=== PATIENT | female | born 1975 | race Two or more races ===

== ENCOUNTER 2020-05-22 13:22 | Emergency (ER) | payer OTHER, SELFPAY ==
--- NOTE | 2020-05-22 14:21 | PC.NURSE ---
AWAITING GAME ADVISOR FOR ASSISTANCE WITH TRIAGE
[2020-05-22 14:29] VITALS: BP 113/68; PULSE 89; RESP 16; TEMP 37; O2SAT 100; BMI 26.5
--- NOTE | 2020-05-22 15:08 | PC.NURSE ---
JACKSON GOLE AND DR DAMICO IN TO ASSESS,
--- NOTE | 2020-05-22 15:42 | ED_ITS ---
HPI - General Adult General Chief complaint: General Medical Stated complaint: rash Time Seen by Provider: 05/22/20 15:42 Source: patient Mode of arrival: ambulatory Limitations: no limitations History of Present Illness HPI narrative: 44-year-old female with history of asthma primarily Uzbek- speaking no other significant past medical history she is up-to-date on vaccinations has not had any recent travel or sick contacts she presents today with complaint of rash that started on her face and slowly has progressed to her torso and lower extremity. Has been present for the past 5 days or so. There is no associated fever or pain or discomfort. There is some itchiness. The rash is described as small fluid-filled vesicles. She otherwise denies any nausea vomiting diarrhea recent medication use. Onset (ago): day(s) Location: head, face, neck, chest, back, upper extremity and lower extremity Radiation: non-radiation Severity: mild Exacerbating factors: none Treatments prior to arrival: none Related Data Previous Rx's Medication Instructions Recorded valacyclovir [Valtrex] 1,000 mg PO TID #21 tab 05/22/20 Allergies Allergy/AdvReac Type Severity Reaction Status Date / Time No Known Allergies Allergy Unverified 04/11/20 19:39 [No Known Allergies*] Review of Systems Review of Systems: Constitutional: No Weight loss, No Fever, No Chills, No Night Sweats, No Fatigue, No Malaise ENT/Mouth: No Hearing loss, No Ear Pain, No Nasal Congestion, No Sinus Pain, No Hoarseness, No sore throat, No Rhinorrhea, No Swallowing Difficulty Eyes: No Eye Pain, No Swelling, No Redness, No Foreign Body, No Discharge, No Vision Changes Cardiovascular: No Chest Pain, No SOB, No Dyspnea on Exertion, No Orthopnea, No Edema, No Palpitations Respiratory: No Cough, No Sputum, No Wheezing, No Smoke Exposure, No Dyspnea Gastrointestinal: No Nausea, No Vomiting, No Diarrhea, No Constipation, No abdominal Pain, No Hematochezia, No Melena Genitourinary: no irregular bleeding, No Dysuria, No Urinary Frequency, No Hematuria, No Urinary Incontinence, No Urgency, No Flank Pain, No Urinary Flow Changes, No Hesitancy Musculoskeletal: No joint pain, No Myalgias, No Joint Swelling Skin: No Skin Lesions, No rash Neuro: No Weakness, No Numbness, No Paresthesias, No Loss of Consciousness, No Dizziness, No Headache Psych: No Social Issues Heme/Lymph: No Bruising, No Bleeding,No Lymphadenopathy Endocrine: No Polyuria, No Polydipsia, No Temperature Intolerance Yes all other systems are reviewed and are negative [facility] Past Medical History Attestation statement: The following information was validated with the patient. Medical History (Updated 05/23/20 @ 00:00 by Background Daemon) No known health problems Social History Social History Smoking Status: Never smoker Use of substances other than those prescribed or required for medical reasons: No Advance Directives: No Advance Directives Information Provided: Yes Physical Exam Vital Signs: Vital Signs: Vital Signs Temp Pulse Resp BP Pulse Ox 05/22/20 14:29 98.6 F 89 16 113/68 100 Body Mass Index 26.5 Dr. Moser present as my prospecting observer. Const: General: cooperative and healthy appearing; No acute distress or intoxicated appearing Nutritional Appearance: average body habitus Orientation/consciousness: patient oriented x3 HENMT: Head: Yes normal to inspection Ears: hearing grossly normal bilaterally Eyes: General: appearance normal, both eyes and all related structures Visual Meier: normal visual meier by confrontation Neck: Neck: Yes normal visual inspection, No positive Brudzinski's sign, No positive Kernig's sign and No tender Thyroid: Thyroid normal Chest: Chest palpation & inspection: normal inspection of the chest Resp: Effort & Inspection: normal respiratory effort Cardio: Jugular venous distension: no JVD GI: Inspection: Yes normal to inspection Percussion: Yes normal to percussion Auscultation: normal bowel sounds : General: Yes no CVA tenderness Back/Spine/Pelvis: Back: no CVA tenderness Neuro: General: patient oriented x3 Extrem: General: Yes normal to inspection Course Course Course Narrative: Chemistry still pending patient requesting to be DC will follow up on this if any abnormalities. Medical Decision Making MDM Narrative Medical decision making narrative: AP of 44-year-old female all the vaccinations with rash for the past 5 days or so that is vesicular with clear fluid filled started on head and extended down as noted above. Differential diagnosis include but not limited to VZV, [id number] disease, viral, dermatitis. Case discussed with ID Dr. Lozada who reviewed the pictures, recommendation for serum Varicella A/B, HIV and treat with Valtrex 1 g t.i.d. for 7 days. Outpatient follow-up with clear precaution return follow-up instructions. Findings reviewed with patient via emergency room physician. She is agreeable. Hemodynamically stable, will nontoxic-appearing stable for discharge. Lab Data Result diagrams: 05/22/20 16:59 05/22/20 16:59 Labs: Lab Results 05/22/20 05/22/20 05/22/20 Range/Units 16:59 16:59 16:59 WBC 3.3 L (4.8-10.8) X10*3/uL RBC 4.81 (4.20-5.50) X10*6/uL Hgb 11.7 L (12.0-16.0) g/dl Hct 37.3 (37-47) % MCV 77.5 L (80-98) fL MCH 24.3 L (27.0-33.0) pg MCHC 31.4 (31.0-35.0) g/dl RDW 15.2 (11.0-16.0) % Plt Count 158 L (160-400) X10*3/uL MPV 10.5 (9.4-12.3) fL Immature Gran % (Auto) 0.3 (0.0-0.4) % Neut % (Auto) 46.1 (45-73) % Lymph % (Auto) 42.5 H (20-40) % [place] % (Auto) 10.2 (2-11) % Eos % (Auto) 0.6 (0-4) % Baso % (Auto) 0.3 (0-2) % Lymph # (Auto) 1.4 (1.2-4.9) X10*3/uL [place] # (Auto) 0.3 (0.1-1.2) X10*3/uL Eos # (Auto) 0.0 (0.0-0.4) X10*3/uL Baso # (Auto) 0.0 (0.0-0.2) X10*3/uL Abs Immat Gran (auto) 0.01 (0.00-0.03) X10*3/uL Absolute Neuts (auto) 1.5 L (2.0-8.3) X10*3/uL Absolute Nucleated RBC 0.000 (0.0-0.012) X10*3/uL Nucleated RBC % (auto) 0.0 (0.0-0.2) /100WBC Smear Tech's Comments VERIFIED Sodium 137 (135-145) mmol/L Potassium 4.1 (3.3-5.1) mmol/l Chloride 102 (96-108) mmol/L Carbon Dioxide 26 (22-29) mmol/L Anion Gap 13 (12-20) BUN 8 L (9-16) mg/dL Creatinine 0.76 (0.5-1.4) mg/dL Estim Creat Clear Calc 84.9 Estimated GFR > 60 Random Glucose 96 (60-115) mg/dL Calcium 8.5 (8.4-10.2) mg/dL Total Bilirubin 0.2 (0.0-1.0) mg/dL AST 27 (5-31) U/L ALT 30 (0-31) U/L Alkaline Phosphatase 67 (39-117) U/L Total Protein 7.4 (6.5-8.0) g/dL Albumin 4.4 (3.5-5.0) g/dL HIV 1&2 Ab/P24 Ag 4thGn Nonreactive (Nonreactive) Discharge Plan Discharge Clinical Impression: Rash and nonspecific skin eruption Patient Disposition: Home, Self-Care Instructions: Acute Rash (ED) Prescriptions: New valacyclovir [Valtrex] 1 gram tablet 1,000 mg PO TID Qty: 21 RF: 0 Referrals: Geraldine Lozada MD [Physician] - 1 week Tony Barkley MD [Primary Care Provider] - 1 week Interventions: ED Discharge Assessment Last Done: 05/22/20 18:11 Discharge Date/Time: 05/22/20 18:11
[2020-05-22 17:11] LABS: Basophils Percent Auto 0.3 % (0-2); Eosinophils Percent Auto 0.6 % (0-4); Hematocrit 37.3 % (37-47); Hemoglobin 11.7 g/dl (12.0-16.0); Imm Gran Abs Auto 0.01 X10*3/uL (0.00-0.03); Imm Gran Pct Auto 0.3 % (0.0-0.4); Lymphocytes Absolute Auto 1.4 X10*3/uL (1.2-4.9); Lymphocytes Percent Auto 42.5 % (20-40); MANUAL DIFF FLAG SCAN; Mean Corpuscular HGB Conc 31.4 g/dl (31.0-35.0); Mean Corpuscular Hemoglobin 24.3 pg (27.0-33.0); Mean Corpuscular Volume 77.5 fL (80-98); Mean Platelet Volume 10.5 fL (9.4-12.3); Monocytes Absolute Auto 0.3 X10*3/uL (0.1-1.2); Monocytes Percent Auto 10.2 % (2-11); Neutrophils Absolute Auto 1.5 X10*3/uL (2.0-8.3); Neutrophils Percent Auto 46.1 % (45-73); Platelet Count 158 X10*3/uL (160-400); Red Blood Count 4.81 X10*6/uL (4.20-5.50); Red Cell Distribution Width 15.2 % (11.0-16.0); SCAN SMEAR FLAG 1; White Blood Count 3.3 X10*3/uL (4.8-10.8)
[2020-05-22 17:57] LABS: SLIDE REVIEW VERIFIED
[2020-05-22 18:13] LABS: Alanine Aminotransferase 30 U/L (0-31); Albumin Level 4.4 g/dL (3.5-5.0); Alkaline Phosphatase 67 U/L (39-117); Anion Gap 13 (12-20); Aspartate Amino Transferase 27 U/L (5-31); Bilirubin Total 0.2 mg/dL (0.0-1.0); Blood Urea Nitrogen 8 mg/dL (9-16); Calcium 8.5 mg/dL (8.4-10.2); Carbon Dioxide 26 mmol/L (22-29); Chloride 102 mmol/L (96-108); Creatinine Clr Calc Pharmacy 84.9; Estimated Glomerular Filt Rate > 60; Glucose Random 96 mg/dL (60-115); Potassium 4.1 mmol/l (3.3-5.1); Sodium 137 mmol/L (135-145); Total Protein 7.4 g/dL (6.5-8.0)
[2020-05-22 18:28] LABS: HIV AB/AG Nonreactive (Nonreactive); HIV Num 1 0.14 S/CO (0.00-0.99)
[2020-05-25 14:16] LABS: Varicella IgG Antibody <135.00 index
[2020-06-04 19:41] LABS: HIV Genotype NOT DETECTED
== END 2020-05-22 18:11 | disposition home or self-care (01) ==
PROVIDERS: Nurse Practitioner Primary Care; Emergency Provider Emergency Medicine; PCP Internal Medicine
DX: R21 Rash and other nonspecific skin eruption (principal)
CPT/HCPCS: 36415; 80053; 85025; 86787; 87389; 87900; 87901; 99283

== ENCOUNTER 2021-11-16 12:40 | Emergency (ER) | payer OTHER, SELFPAY ==
--- NOTE | ~2021-11-16 | CT_ITS ---
EXAMINATION: CT ABDOMEN AND PELVIS WITH CONTRAST CLINICAL INFORMATION: Abdominal pain, vomiting and tachycardia. COMPARISON: None TECHNIQUE: Multidetector volumetric images were obtained from the superior aspect of the liver through the pubic symphysis following administration 85 mL of Omnipaque 350 intravenous contrast. Sagittal and coronal reformatted images were obtained on the technologist's workstation. Oral contrast: No This CT examination was performed using dose optimization techniques as appropriate, variously including the following: *Automated exposure control *Adjustment of mA and/or kV according to patient size (this includes techniques or standardized protocols for targeted exams where dose is matched to indication/reason for exam; i.e. extremities or head) *Use of iterative reconstruction technique DLP: 548 mGy-cm FINDINGS: LUNG BASES: Minimal atelectatic changes seen in the right lung base. Heart size is normal. LIVER, GALLBLADDER, AND BILIARY TREE: The liver is normal in size, shape, and attenuation. No focal hepatic lesion or biliary ductal dilatation is present. The gallbladder is unremarkable with no evidence of radiopaque gallstones, gallbladder wall thickening, or obvious pericholecystic inflammatory changes. PANCREAS: Unremarkable. SPLEEN: Unremarkable. ADRENAL GLANDS: Unremarkable. KIDNEYS AND URETERS: The kidneys are normal in size, shape, and attenuation. No hydronephrosis, hydroureter, or calculi seen. No perinephric stranding. BLADDER: Unremarkable. GASTROINTESTINAL TRACT: There is scattered stool and gas seen throughout the colon without any significant distention. The small bowel loops are normal caliber. Appendix is not visualized. No inflammatory process seen in the abdomen. ABDOMINAL WALL: The abdominal wall is unremarkable. LYMPH NODES: Normal. VASCULAR: Unremarkable. PELVIC VISCERA: There is a large exophytic heterogeneous mass arising from the fundus of the stomach suggestive of a large fibroid measuring 14.10 x 10.3 x 8.9 cm OSSEOUS STRUCTURES: Unremarkable. CT/CT abdomen pelvis w con IMPRESSION: Large exophytic fundal fibroid compressing the urinary bladder inferiorly. Otherwise no acute intra-abdominal process seen. Fleischner guidelines were followed.
[2021-11-16 12:58] VITALS: BP 117/76; PULSE 130; RESP 19; TEMP 37.9; O2SAT 99; BMI 26.5
[2021-11-16 13:23] LABS: MANUAL DIFF FLAG NO
[2021-11-16 13:26] LABS: Basophils Percent Auto 0.1 % (0-2); Eosinophils Percent Auto 0.3 % (0-4); Hematocrit 37.8 % (37.0-47.0); Hemoglobin 12.2 g/dl (12.0-16.0); Imm Gran Abs Auto 0.03 X10*3/uL (0.00-0.03); Imm Gran Pct Auto 0.4 % (0.0-0.4); Lymphocytes Absolute Auto 0.5 X10*3/uL (1.2-4.9); Lymphocytes Percent Auto 6.9 % (20-40); Mean Corpuscular HGB Conc 32.3 g/dl (31.0-35.0); Mean Corpuscular Hemoglobin 24.3 pg (27.0-33.0); Mean Corpuscular Volume 75.3 fL (80.0-98.0); Mean Platelet Volume 10.1 fL (9.4-12.3); Monocytes Absolute Auto 0.5 X10*3/uL (0.1-1.2); Monocytes Percent Auto 6.6 % (2-11); Neutrophils Absolute Auto 6.2 x10*3/uL (2.0-8.3); Neutrophils Percent Auto 85.7 % (45-73); Platelet Count 233 X10*3/uL (160-400); Red Blood Count 5.02 X10*6/uL (4.20-5.50); Red Cell Distribution Width 15.4 % (11.0-16.0); White Blood Count 7.3 X10*3/uL (4.8-10.8)
[2021-11-16 13:28] LABS: Appearance Urine HAZY; Color Urine YELLOW; Glucose Urine UA NEG (NEG); Leukocyte Esterase Urine NEG (NEG); Nitrite Urine NEG (NEG); Specific Gravity - Urine 1.025 (1.005-1.025); UACC Culture Trigger NO; Urine Blood TRACE (NEG); Urine Ketones NEG (NEG); Urine Protein 1+ MG/DL (NEG-TRACE)
[2021-11-16 13:29] LABS: UPreg QC Valid YES; Urine Pregnancy NEGATIVE (NEGATIVE)
[2021-11-16 13:38] LABS: Mucus Urine 2+ /LPF; Squamous Epithelial Cell Urine 2+ /LPF
[2021-11-16 13:39] LABS: Bacteria Urine 1+ /LPF; RBC Urine 0-2 /HPF (0); WBC Urine 0 /HPF (0-4)
[2021-11-16 13:40] LABS: Anion Gap 14 (12-20); Blood Urea Nitrogen 13 mg/dL (9-16); Calcium 8.8 mg/dL (8.4-10.2); Carbon Dioxide 26 mmol/L (22-29); Chloride 101 mmol/L (96-108); Creatinine Clr Calc Pharmacy 83.1; Estimated Glomerular Filt Rate > 60; Glucose Random 112 mg/dL (60-115); Potassium 3.7 mmol/L (3.3-5.1); Sodium 137 mmol/L (135-145)
[2021-11-16 13:59] LABS: Influenza A Negative (Negative); Influenza B2 Negative (Negative)
[2021-11-16 14:17] LABS: COVID-19 Test Negative (Negative); IDNOW Serial# 55D5AD1C
[2021-11-16 15:54] LABS: Alanine Aminotransferase 23 U/L (0-31); Albumin Level 4.3 g/dL (3.5-5.0); Alkaline Phosphatase 64 U/L (39-117); Aspartate Amino Transferase 21 U/L (5-31); Bilirubin Direct < 0.2 mg/dL (0.0-0.5); Bilirubin Total 0.3 mg/dL (0.0-1.0); Lipase 16 U/L (8-78); Total Protein 7.5 g/dL (6.5-8.0)
--- NOTE | 2021-11-16 16:25 | ED_ITS ---
HPI - General Adult General Chief complaint: General Medical Stated complaint: Vomiting/Fever Time Seen by Provider: 11/16/21 15:37 Source: patient and family Mode of arrival: ambulatory Limitations: language barrier ( Nicaraguan-speaking, declined medical case worker, patient's and interpreted) History of Present Illness HPI narrative: patient presents to the emergency department for evaluation of nausea with persistent vomiting, reportedly 10 times daily for the past 2 days. Vomiting occurs every time after she eats. Yesterday she was experiencing multiple episodes of diarrhea, that were brown in color without blood. Has upper abdominal discomfort. She does report that the evening prior to her symptoms she went out to eat at a restaurant where she had chicken, yuca and potatoes. her had a different male, and is not experiencing similar symptoms. She denies any known contacts to COVID- 19 or influenza. She has been feeling hot with chills, but has not checked her temperature. Denies headache, nasal congestion, neck pain, cough, shortness of breath, dyspnea on exertion, chest pain, palpitations, pedal edema, constipation, dysuria, urinary frequency, generalized weakness. Related Data Previous Rx's Medication Instructions Recorded valacyclovir 1 gram tablet 1,000 mg PO TID #21 tab 05/22/20 (Valtrex) ondansetron 4 mg disintegrating 4 mg PO Q8H PRN #10 tab 11/16/21 tablet Allergies Allergy/AdvReac Type Severity Reaction Status Date / Time No Known Allergies Allergy Unverified 04/11/20 19:39 [No Known Allergies*] Review of Systems Review of Systems: Constitutional : No Weight loss, Positive tactile fever, positive chills ENT/Mouth :? No sore throat, No Rhinorrhea Eyes: No Swelling, No Redness Cardiovascular : No Chest Pain, No SOB, No Edema Respiratory : No Cough, No Sputum, No Wheezing Gastrointestinal : Positive Nausea, Positive Vomiting, positive Diarrhea, positive abdominal pain, No Hematochezia, No Melena Genitourinary : No Dysuria, No Urinary Frequency, No Hematuria, No Urgency? Musculoskeletal : No joint pain, No Myalgias, No Joint Swelling Skin : No Skin Lesions, No rash Neuro : No Weakness, No Numbness, No Dizziness, No Headache Psych : No Anxiety/Panic, No Depression Heme/Lymph: No Bruising, No Lymphadenopathy Endocrine : No Polyuria, No Polydipsia Yes all other systems are reviewed and are negative [facility] Past Medical History Attestation statement: The following information was validated with the patient. Source: old records reviewed Medical History No known health problems Social History Social History Advance Directives: No Advance Directives Information Provided: No Patient : No Physical Exam ED Vital Signs: Vital Signs - 24 hr 11/16/21 12:58 11/16/21 16:30 11/16/21 18:34 Temperature 100.3 F 100.0 F 101.1 F H Pulse Rate 130 H 113 H 112 H Respiratory Rate 19 16 16 Blood Pressure 117/76 114/66 124/75 Pulse Oximetry 99 96 98 BMI result Body Mass Index 26.5 Vital signs have been reviewed as normal and appeared to be correct. Blood pressure normal.? initially tachycardic during triage at 160, during exam noted to be 116 at 1615.? Respiration rate normal. low-grade fever initially, during exam 99.0 at 1615.? Oxygen saturation normal. Appearance: Alert.?Oriented to person, place and time. No acute distress.?Normal affect. Eyes: Pupils equal, round and reactive to light.? ENT: Pharynx normal.?? Neck: Normal inspection.? Neck supple.?? CVS: Heart sounds normal. Normal heart rate and rhythm.? Pulses normal.?? Respiratory: No respiratory distress.? Lung sounds clear to auscultation bilaterally?? Abdomen: Soft mild upper abdominal tenderness, negative Gregorio sign. Nor moactive bowel sounds. No pulsatile mass.?? Skin: Skin warm and dry.? Normal skin color.? Extremities: No lower extremity edema.? Neuro: Moves all extremities spontaneously. Sensation intact bilaterally. CN II- XII intact. No focal neuro deficits. Ambulates with normal steady gait. Course Course Course Narrative: Patient is a 46-year-old female no significant past medical history, Presenting for evaluation of vomiting, diarrhea, fevers, and abdominal discomfort. Symptoms seem to have started about 6-8 hours after eating at a re staurant. cortical labs from triage revealed COVID- 19 and influenza testing to be negative, urine test is negative. Urinalysis without acute concern for urinary tract infection. CBC reveals no leukocytosis, has elevated neutrophil count. CMP is normal, and lipase is normal. Continues to be tachycardic, poor p.o. tolerance, will order 1 L normal saline IV fluid, Zofran 4 mg IV, will obtain CT of the abdomen to exclude intra-abdominal pathology. Reevaluation(s) Reevaluation #1: CT of abdomen reveals a large exophytic fundal fibroid 14.10 x 10.3 x 8.9 cm compressing the urinary bladder inferiorly, otherwise no acute intra-abdominal pathology. do not suspect this to be the cause of her vomiting or fever, however may be cause her abdominal discomfort. Not consistent with GI perforation, GI bleed, AAA, aortic dissection, DKA. Not consistent with strangulated hernia, bowel obstruction, pulmonary embolism, mesenteric ischemia, myocardial infarction, ovarian torsion. Symptoms most cinsistent with gastr oenteritis, Advised conservative treatment rest, fluids, brat diet, outpatient follow-up with primary care provider in 1-2 days, advised reasons return back to the emergency department. Discussed need for outpatient follow- up with OBGYN regarding large fundal fibroid, Patient denies being aware of any history of fibroids in the past, she does endorse that she was told she would not be able to become due to low blood levels , but does not recall specifics Time: 18:30 Medical Decision Making Medical Records Medical records reviewed: Yes I reviewed the patient's medical records. Lab Data Lab results reviewed: Yes I reviewed the patient's lab results. Result diagrams: 11/16/21 13:13 11/16/21 13:13 Labs: Lab Results 11/16/21 11/16/21 11/16/21 Range/Units 13:13 13:13 13:13 WBC 7.3 (4.8-10.8) X10*3/uL RBC 5.02 (4.20-5.50) X10*6/uL Hgb 12.2 (12.0-16.0) g/dl Hct 37.8 (37.0-47.0) % MCV 75.3 L (80.0-98.0) fL MCH 24.3 L (27.0-33.0) pg MCHC 32.3 (31.0-35.0) g/dl RDW 15.4 (11.0-16.0) % Plt Count 233 (160-400) X10*3/uL MPV 10.1 (9.4-12.3) fL Immature Gran % (Auto) 0.4 (0.0-0.4) % Neut % (Auto) 85.7 H (45-73) % Lymph % (Auto) 6.9 L (20-40) % Falls % (Auto) 6.6 (2-11) % Eos % (Auto) 0.3 (0-4) % Baso % (Auto) 0.1 (0-2) % Lymph # (Auto) 0.5 L (1.2-4.9) X10*3/uL Falls # (Auto) 0.5 (0.1-1.2) X10*3/uL Eos # (Auto) 0.0 (0.0-0.4) X10*3/uL Baso # (Auto) 0.0 (0.0-0.2) X10*3/uL Abs Immat Gran (auto) 0.03 (0.00-0.03) X10*3/uL Absolute Neuts (auto) 6.2 (2.0-8.3) x10*3/uL Absolute Nucleated RBC 0.000 (0.0-0.012) X10*3/uL Nucleated RBC % (auto) 0.0 (0.0-0.2) /100WBC Sodium 137 (135-145) mmol/L Potassium 3.7 (3.3-5.1) mmol/L Chloride 101 (96-108) mmol/L Carbon Dioxide 26 (22-29) mmol/L Anion Gap 14 (12-20) BUN 13 (9-16) mg/dL Creatinine 0.76 (0.5-1.4) mg/dL Estim Creat Clear Calc 83.1 Estimated GFR > 60 Random Glucose 112 (60-115) mg/dL Calcium 8.8 (8.4-10.2) mg/dL Total Bilirubin 0.3 (0.0-1.0) mg/dL Direct Bilirubin < 0.2 (0.0-0.5) mg/dL AST 21 (5-31) U/L ALT 23 (0-31) U/L Alkaline Phosphatase 64 (39-117) U/L Total Protein 7.5 (6.5-8.0) g/dL Albumin 4.3 (3.5-5.0) g/dL Lipase 16 (8-78) U/L Urine Color Urine Appearance Urine pH (5.0-8.0) Ur Specific [place] (1.005-1.025) Urine Protein (NEG-TRACE) MG/DL Urine Glucose (UA) (NEG) MG/DL Urine Ketones (NEG) MG/DL Urine Blood (NEG) Urine Nitrite (NEG) Ur Leukocyte Esterase (NEG) Urine RBC (0) /HPF Urine WBC (0-4) /HPF Ur Squamous Epith Cells /LPF Urine Bacteria /LPF Urine Mucus /LPF Urine Test (NEGATIVE) COVID-19 ([facility]) (Negative) COVID-19 Clin Com Influenza Type A ([facility]) Negative (Negative) Influenza Type B ([facility]) Negative (Negative) Influenza A & B Note See Note 11/16/21 11/16/21 11/16/21 Range/Units 13:13 13:13 13:13 WBC (4.8-10.8) X10*3/uL RBC (4.20-5.50) X10*6/uL Hgb (12.0-16.0) g/dl Hct (37.0-47.0) % MCV (80.0-98.0) fL MCH (27.0-33.0) pg MCHC (31.0-35.0) g/dl RDW (11.0-16.0) % Plt Count (160-400) X10*3/uL MPV (9.4-12.3) fL Immature Gran % (Auto) (0.0-0.4) % Neut % (Auto) (45-73) % Lymph % (Auto) (20-40) % Falls % (Auto) (2-11) % Eos % (Auto) (0-4) % Baso % (Auto) (0-2) % Lymph # (Auto) (1.2-4.9) X10*3/uL Falls # (Auto) (0.1-1.2) X10*3/uL Eos # (Auto) (0.0-0.4) X10*3/uL Baso # (Auto) (0.0-0.2) X10*3/uL Abs Immat Gran (auto) (0.00-0.03) X10*3/uL Absolute Neuts (auto) (2.0-8.3) x10*3/uL Absolute Nucleated RBC (0.0-0.012) X10*3/uL Nucleated RBC % (auto) (0.0-0.2) /100WBC Sodium (135-145) mmol/L Potassium (3.3-5.1) mmol/L Chloride (96-108) mmol/L Carbon Dioxide (22-29) mmol/L Anion Gap (12-20) BUN (9-16) mg/dL Creatinine (0.5-1.4) mg/dL Estim Creat Clear Calc Estimated GFR Random Glucose (60-115) mg/dL Calcium (8.4-10.2) mg/dL Total Bilirubin (0.0-1.0) mg/dL Direct Bilirubin (0.0-0.5) mg/dL AST (5-31) U/L ALT (0-31) U/L Alkaline Phosphatase (39-117) U/L Total Protein (6.5-8.0) g/dL Albumin (3.5-5.0) g/dL Lipase (8-78) U/L Urine Color YELLOW Urine Appearance HAZY Urine pH 6.0 (5.0-8.0) Ur Specific [place] 1.025 (1.005-1.025) Urine Protein 1+ H (NEG-TRACE) MG/DL Urine Glucose (UA) NEG (NEG) MG/DL Urine Ketones NEG (NEG) MG/DL Urine Blood TRACE (NEG) Urine Nitrite NEG (NEG) Ur Leukocyte Esterase NEG (NEG) Urine RBC 0-2 (0) /HPF Urine WBC 0 (0-4) /HPF Ur Squamous Epith Cells 2+ /LPF Urine Bacteria 1+ /LPF Urine Mucus 2+ /LPF Urine Test NEGATIVE (NEGATIVE) COVID-19 ([facility]) Negative (Negative) COVID-19 Clin Com See Note Influenza Type A ([facility]) (Negative) Influenza Type B ([facility]) (Negative) Influenza A & B Note Imaging Data CT scan - abdomen: Radiologist's impression: CT/CT abdomen pelvis w con IMPRESSION: Large exophytic fundal fibroid compressing the urinary bladder inferiorly. Otherwise no acute intra-abdominal process seen.? Discharge Plan Discharge Clinical Impression: Gastroenteritis, Fibroid Patient Disposition: Home, Self-Care Instructions: Acute Nausea and Vomiting (ED) Additional Instructions: your symptoms may be related to food poisoning or possible stomach virus, please take Zofran as needed for nausea, get plenty of rest, and stay well- hydrated. please contact primary care provider to schedule follow-up visit in from to 2 days. Return to the emergency department any new or worsening symptoms or concerns. Please contact OBGYN for further follow-up on fibroid. Prescriptions: New ondansetron 4 mg tablet,disintegrating 4 mg PO Q8H PRN (Reason: nausea and vomiting) Qty: 10 0RF No Action valacyclovir [Valtrex] 1 gram tablet 1,000 mg PO TID Qty: 21 0RF Referrals: Larry Sethi MD [Physician] - 1 week (Large exophytic fundal fibroid) Interventions: ED Discharge Assessment Last Done: 11/16/21 19:03 Discharge Date/Time: 11/16/21 19:04 Print Language: Nicaraguan
[2021-11-16 16:30] VITALS: BP 114/66; PULSE 113; RESP 16; TEMP 37.8; O2SAT 96
[2021-11-16] MEDS: 0.9 % Sodium Chloride 1,000 ML 999 ML IV (16:56)
[2021-11-16] MEDS: iohexoL 350 MG/ML 100 ML INFUS..BTL IV (17:28)
[2021-11-16] MEDS: ondansetron HCL 4 MG/2 ML VIAL IVPUSH (17:41)
[2021-11-16 18:34] VITALS: BP 124/75; PULSE 112; RESP 16; TEMP 38.4; O2SAT 98
[2021-11-16] MEDS: Acetaminophen 325 MG TABLET 975 MG PO (19:00)
== END 2021-11-16 19:04 | disposition home or self-care (01) ==
PROVIDERS: Nurse Practitioner Family; Emergency Provider Internal Medicine; PCP Internal Medicine
DX: K52.9 Noninfective gastroenteritis and colitis, unspecified (principal); D25.9 Leiomyoma of uterus, unspecified; R10.9 Unspecified abdominal pain; R00.0 Tachycardia, unspecified; R50.9 Fever, unspecified; Z20.822 Contact with and (suspected) exposure to COVID-19; Z79.899 Other long term (current) drug therapy
CPT/HCPCS: 74177; 80048; 80076; 81001; 81025; 83690; 85025; 87502; 87635; 96361; 96374; 99284; J2405; Q9967

== ENCOUNTER 2021-12-08 11:13 | Outpatient (REF) | payer OTHER, SELFPAY ==
[2021-12-09 06:41] LABS: CT PCR NOT DETECTED (Not Detect.); NG PCR NOT DETECTED (Not Detect.)
[2021-12-11 18:31] LABS: HPV mRNA E6/E7 rflx Not Detected (Not Detected)
== END 2021-12-08 11:14 | disposition home or self-care (01) ==
LOC: HO.LAB 11:13
PROVIDERS: PCP Internal Medicine; Visit Provider Obstetrics & Gynecology
DX: Z01.419 Encounter for gynecological examination (general) (routine) without abnormal findings (principal); Z11.51 Encounter for screening for human papillomavirus (HPV); D21.9 Benign neoplasm of connective and other soft tissue, unspecified
CPT/HCPCS: 87491; 87591; 87624; 88142; 99202

== ENCOUNTER 2022-03-11 10:34 | Outpatient (REF) | payer OTHER, SELFPAY ==
--- NOTE | ~2022-03-11 | US_ITS ---
EXAMINATION: US PELVIS CLINICAL INFORMATION: Benign neoplasm of connective tissue. Myoma. COMPARISON: CT abdomen and pelvis 11/16/2021. TECHNIQUE: Ultrasound of the pelvis is performed using both transabdominal and transvaginal transducers along with Doppler. Transvaginal imaging is performed due to inadequate visualization transabdominally. FINDINGS: UTERUS: The uterus is anteverted and measures 14.6 cm in length, 7.9 cm in AP and 13.9 cm in transverse dimension. There is a large heterogeneous lesion in the fundus and upper body measuring 10.5 8.2 x 13.9 cm. Previously measured 14.1 x 10.2 x 8.9 cm. No additional lesions seen. The double wall endometrium is not visualized due to large fibroid. The uterus is smooth in contour and has normal myometrial echogenicity. No visible fibroid. ADNEXA: Both ovaries are visualized. There is normal color flow to the adnexa. There is no ovarian torsion. There is no pelvic ascites or fluid collection. Right ovary measures 2.8 x 1.6 x 1.6 and volume 3.8 mL. Left ovary measures 2.8 x 1.5 x 1.8 cm and volume 3.8 mL. There is no free fluid in cul-de-sac. US/US pelvic and transvaginal IMPRESSION: Large uterine fibroid. It is concordant with CT findings from 11/16/2021.
== END 2022-03-11 10:35 | disposition home or self-care (01) ==
LOC: HO.US 10:34
PROVIDERS: Visit Provider Obstetrics & Gynecology
DX: D21.9 Benign neoplasm of connective and other soft tissue, unspecified (principal)
CPT/HCPCS: 76830; 76856

== ENCOUNTER 2022-03-11 13:09 | Outpatient (REF) | payer OTHER, SELFPAY ==
--- NOTE | ~2022-03-11 | XR_ITS ---
EXAMINATION: XR CHEST CLINICAL INFORMATION: Cough. COMPARISON: Chest radiographs dated 05/14/2019. TECHNIQUE: 2 views of the chest were obtained. FINDINGS: No significant abnormality is noted involving the heart, lungs, mediastinum, bony thorax or soft tissues. XR/XR chest 2V IMPRESSION: No acute cardiopulmonary process.
== END 2022-03-11 13:10 | disposition home or self-care (01) ==
LOC: HO.HMGCX 13:09
PROVIDERS: PCP Hospitalist; Visit Provider Family Medicine
DX: R05.9 Cough, unspecified (principal)
CPT/HCPCS: 71046

== ENCOUNTER → 2022-03-25 11:07 | Outpatient (BNVA) | payer OTHER, SELFPAY | PROVIDERS: PCP Hospitalist; Visit Provider Obstetrics & Gynecology | DX: D21.9 Benign neoplasm of connective and other soft tissue, unspecified (principal) | CPT/HCPCS: 99212 ==

== ENCOUNTER 2022-03-26 12:53 | Outpatient (REF) | payer OTHER, SELFPAY ==
--- NOTE | ~2022-03-26 | MM_ITS ---
EXAMINATION: MM SCREENING DIGITAL BREAST TOMOSYNTHESIS, BILATERAL CLINICAL INFORMATION: Screening. Asymptomatic. Age 46. No prior breast imaging. The lifetime risk of breast cancer based on the Tyrer-Cuzick Model is 11%. COMPARISON: None (current study represents initial baseline exam). TECHNIQUE: Digital breast tomosynthesis is performed in both the craniocaudal and mediolateral oblique views along with computer-aided detection (CAD). Synthesized 2D images are generated from the tomosynthesis. FINDINGS: The breasts are heterogeneously dense, which may obscure small masses (ACR BI-RADS breast composition Category c). There are no significant masses, abnormal calcifications, or other abnormalities. The axilla and skin contours are unremarkable. MM/MM tomosynthesis screening BI IMPRESSION: No mammographic evidence of malignancy. ASSESSMENT: BI-RADS 1: Negative RECOMMENDATION: Routine annual mammography screening. This patient's information was entered into a reminder system with a target due date for their next mammogram.
== END 2022-03-26 12:54 | disposition home or self-care (01) ==
LOC: HO.MAMMO 12:53
PROVIDERS: PCP Hospitalist; Visit Provider Obstetrics & Gynecology
DX: Z12.31 Encounter for screening mammogram for malignant neoplasm of breast (principal)
CPT/HCPCS: 77063; 77067

== ENCOUNTER 2023-03-09 10:44 | Outpatient (REF) | payer OTHER, SELFPAY ==
[2023-03-09 17:49] LABS: CT PCR NOT DETECTED (Not Detect.); NG PCR NOT DETECTED (Not Detect.)
[2023-03-10 15:11] LABS: BV Int Neg Control Negative (Negative); BV Int Pos Control Positive (Positive)
== END 2023-03-09 10:45 | disposition home or self-care (01) ==
LOC: HO.LAB 10:44
PROVIDERS: PCP Hospitalist; Visit Provider Advanced Practice Midwife
DX: Z20.2 Contact with and (suspected) exposure to infections with a predominantly sexual mode of transmission (principal)
CPT/HCPCS: 0353U; 87480; 87510; 87660

== ENCOUNTER 2023-03-09 10:44 | Outpatient (AMB) | payer OTHER, SELFPAY ==
--- NOTE | 2023-03-09 10:50 | A.OFFVIS_ITS ---
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 Scribed for JOSE Morales by Zoe Berumen senior medical technologist, on 03/09/2023 at 11:07 am EST. Geoscientist Required: Yes Geoscientist Language: Publications Inspector Name: Carlito Wong Information Interpreted: non-clinical & clinical Mill Machinist: Mill Machinist Present (Stacie) Allergies No Known Allergies [No Known Allergies*] Allergy (Unverified 03/09/23 10:59) Is last menstrual period known: Yes Last menstrual period: 02/11/23 Post menopausal: No Patient : No HPI HPI Comments History of Present Illness Details She is a premenopausal woman presenting for annual exam. She admits to not eating healthy and tries to stay active with exercise. Currently sexually active. Does not use BC due to infertility and was tested in [place]. Denies vaginal itching, odor and irritation. STD screening offered; she accepts. Denies family hx of breast, colon and ovarian cancer. Last pap smear 12/08/21. Last mammogram 03/26/22. [facility] Medical History (Updated 03/09/23 @ 11:34 by Zoe Berumen) History of infertility No known health problems Social History (Updated 03/09/23 @ 11:14 by Camryn Garcia CNM) Household Members: Spouse Housing: Apartment Alcohol intake: never Patient Tobacco Use Status: Never used Tobacco Sexual orientation: Straight/Heterosexual Gender identity: Female Female Reproductive History Menstrual Duration of menses: 6-7 days Date of last menstrual period: 02/11/23 control method: other (infertility) Total pregnancies: 0 Date of last pap smear: 12/08/21 (neg pap and hpv) Date of Mammogram: 03/26/22 (Birad 1) Physical Exam Vital Signs: Last Vital Signs BP 120/60 03/09/23 10:51 BMI result Body Mass Index 27.4 Const General: cooperative, healthy appearing, no acute distress, well developed and alert Orientation/consciousness: patient oriented x3 HEENT Head: Yes normal to inspection Eyes General: appearance normal, both eyes and all related structures Neck Neck: Yes normal visual inspection Thyroid: Thyroid normal Chest Chest palpation & inspection: normal inspection of the chest Breast/axilla inspection: normal inspection of the breasts (no puckering, dimpling, peau de orange, retraction, discharge, masses) Breast/axilla palpation: normal palpation of the breasts Resp Effort & Inspection: normal respiratory effort GI Inspection: Yes normal to inspection Palpation (GI): Soft to palpation (to palpation) Rectal Exam - Female: deferred General: Yes bladder normal to inspection External Female Exam: normal external appearance and normal appearance of the urethra Speculum Exam - Vagina: normal appearance of the vagina, normal palpation and normal vaginal discharge Speculum Exam - Cervix: normal appearance of the cervix and normal palpation Bimanual exam- vagina & uterus: normal palpation, normal palpation and enlarged Bimanual Exam- Adnexa, other: normal adnexae and no masses Skin General skin exam: no rashes or lesions noted Neuro General: patient oriented x3 Cognition (Neuro): normal cognition Extrem General: Yes normal to inspection Psych Attitude: cooperative Thought process: Normal thought process present Results Reviewed Results Reviewed: EXAMINATION:? US PELVIS CLINICAL INFORMATION:? Benign neoplasm of connective tissue. Myoma. COMPARISON: CT abdomen and pelvis 11/16/2021. TECHNIQUE: Ultrasound of the pelvis is performed using both transabdominal and transvaginal transducers along with Doppler. Transvaginal imaging is performed due to inadequate visualization transabdominally. FINDINGS: UTERUS: The uterus is anteverted and measures 14.6 cm in length, 7.9 cm in AP and 13.9 cm in transverse dimension. There is a large heterogeneous lesion in the fundus and upper body measuring 10.5 8.2 x 13.9 cm. Previously measured 14.1 x 10.2 x 8.9 cm. No additional lesions seen. The double wall endometrium is not visualized due to large fibroid.? The uterus is smooth in contour and has normal myometrial echogenicity. ? No visible fibroid. ADNEXA: Both ovaries are visualized. There is normal color flow to the adnexa. There is no ovarian torsion. There is no pelvic ascites or fluid collection. Right ovary measures 2.8 x 1.6 x 1.6 and volume 3.8 mL. Left ovary measures 2.8 x 1.5 x 1.8 cm and volume 3.8 mL. There is no free fluid in cul-de-sac. US/US pelvic and transvaginal IMPRESSION: Large uterine fibroid. It is concordant with CT findings from 11/16/2021. Assessment & Plan Assessment & Plan (1) Encounter for well woman exam: Code(s): Z01.419 - Encounter for gynecological examination (general) (routine) without abnormal findings Plan: Discussed: Current recommendations for pap smears per ASCCP guidelines Breast awareness and periodic self breast exams. Mammogram ordered. Maintaining a healthy lifestyle including a well balanced diet and routine exercise. Encouraged patient to sign up for patient portal. All of her questions and concerns were addressed to the best of my ability. RTO in one year for AG. (2) Myoma: Code(s): D21.9 - Benign neoplasm of connective and other soft tissue, unspecified Plan: Informed myoma has slightly shrunk but can grow while getting menstruation. If abnormal bleeding pattern occurs, contact the office. Leiomyoma: common pelvic neoplasm. Differential diagnosis-may include leiomyosarcoma which is a rare uterine sarcoma 3-7/100,000, difficult to distin guish from fibroids on ultrasound from uterine sarcoma's. Unlikely any single test will have a highly positive predictive value. Hysterectomy is not recommended for sole purpose of excluding malignant neoplasm. Monitor periods, report any unscheduled bleeding, bleeding episodes less than 21 days apart, heavy prolonged menstrual bleeding, pelvic pressure, bloating, or pain. US ordered; follow up in person for results. (3) History of infertility: Code(s): Z87.42 - Personal history of other diseases of the female genital tract (4) Potential exposure to STD: Code(s): Z20.2 - Contact with and (suspected) exposure to infections with a predominantly sexual mode of transmission Plan: BV testing and GC/CT panel done today. Await results and treat accordingly. Orders: Orders MM tomosynthesis screening BI Today Z12.31 - Encounter for screening mammogram for malignant neoplasm of breast US pelvic and transvaginal Today D21.9 - Benign neoplasm of connective and other soft tissue, unspecified Bacterial Vaginosis Panel Today Z20.2 - Contact with and (suspected) exposure to infections with a predominantly sexual mode of transmission CT NG by PCR Today Z20.2 - Contact with and (suspected) exposure to infections with a predominantly sexual mode of transmission Hepatitis B Core Antibody Today Z20.2 - Contact with and (suspected) exposure to infections with a predominantly sexual mode of transmission Hepatitis C Antibody Today Z20.2 - Contact with and (suspected) exposure to infections with a predominantly sexual mode of transmission HIV Ab/Ag Today Z20.2 - Contact with and (suspected) exposure to infections with a predominantly sexual mode of transmission Syphilis Screen Today Z20.2 - Contact with and (suspected) exposure to infections with a predominantly sexual mode of transmission Coding Level of Care Code Est Pt Prev Care 40-64y(19846) Diagnoses Encounter for well woman exam Z01.419 Myoma D21.9 History of infertility Z87.42 Potential exposure to STD Z20.2
[2023-03-09 10:51] VITALS: BP 120/60; BMI 27.4
== END 2023-03-09 11:44 | disposition home or self-care (01) ==
LOC: HO.HWS 10:45
PROVIDERS: PCP Hospitalist; Visit Provider Advanced Practice Midwife
DX: Z01.419 Encounter for gynecological examination (general) (routine) without abnormal findings (principal); D21.9 Benign neoplasm of connective and other soft tissue, unspecified; Z87.42 Personal history of other diseases of the female genital tract; Z20.2 Contact with and (suspected) exposure to infections with a predominantly sexual mode of transmission
CPT/HCPCS: 99396

== ENCOUNTER 2023-03-09 11:26 | Outpatient (REF) | payer OTHER, SELFPAY | END 2023-03-09 11:27 | disposition home or self-care (01) | LOC: HO.LNP 11:26 | PROVIDERS: Visit Provider Advanced Practice Midwife | DX: Z13.89 Encounter for screening for other disorder (principal) ==

== ENCOUNTER 2023-04-01 12:56 | Outpatient (REF) | payer OTHER, SELFPAY ==
--- NOTE | ~2023-04-01 | MM_ITS ---
EXAMINATION: MM SCREENING DIGITAL BREAST TOMOSYNTHESIS, BILATERAL CLINICAL INFORMATION: Screening. Asymptomatic. COMPARISON: Mammography: This study is compared with prior exams dating back to 2021. TECHNIQUE: Digital breast tomosynthesis is performed in both the craniocaudal and mediolateral oblique views along with computer-aided detection (CAD). Synthesized 2D images are generated from the tomosynthesis. FINDINGS: The breasts are heterogeneously dense, which may obscure small masses (ACR BI-RADS breast composition Category c). There are no significant masses, abnormal calcifications, or other abnormalities. MM/MM tomosynthesis screening BI IMPRESSION: No mammographic evidence of malignancy. ASSESSMENT: BI-RADS BI-RADS 1 - Negative RECOMMENDATION: Routine annual mammography screening. 1 year F/U This examination should not preclude the clinical evaluation of a suspicious palpable abnormality. This patient's information was entered into a reminder system with a target due date for their next mammogram.
== END 2023-04-01 12:57 | disposition home or self-care (01) ==
LOC: HO.MAMMO 12:56
PROVIDERS: PCP Hospitalist; Visit Provider Hospitalist
DX: Z12.31 Encounter for screening mammogram for malignant neoplasm of breast (principal)
CPT/HCPCS: 77063; 77067

== ENCOUNTER → 2023-04-01 13:00 | Outpatient (BNV) | payer OTHER, SELFPAY | PROVIDERS: PCP Hospitalist; Visit Provider Radiology Diagnostic Radiology | DX: Z12.31 Encounter for screening mammogram for malignant neoplasm of breast (principal) | CPT/HCPCS: 77063; 77067 ==

== ENCOUNTER 2024-04-06 12:46 | Outpatient (REF) | payer OTHER, SELFPAY ==
--- NOTE | ~2024-04-06 | MM_ITS ---
EXAMINATION: MM SCREENING DIGITAL BREAST TOMOSYNTHESIS, BILATERAL CLINICAL INFORMATION: Screening. Asymptomatic. COMPARISON: Mammography: Comparison is made with available priors TECHNIQUE: Digital breast mammography with tomosynthesis is performed in both the craniocaudal and mediolateral oblique views along with computer-aided detection (CAD). FINDINGS: The breasts are heterogeneously dense, which may obscure small masses (ACR BI-RADS breast composition Category c). There are no significant masses, abnormal calcifications, or other abnormalities. MM/MM tomosynthesis screening BI IMPRESSION: No mammographic evidence of malignancy. ASSESSMENT: BI-RADS BI-RADS 1 - Negative RECOMMENDATION: Routine annual mammography screening. 1 year F/U This examination should not preclude the clinical evaluation of a suspicious palpable abnormality. This patient's information was entered into a reminder system with a target due date for their next mammogram. Electronically signed by: Oriana Alexis DO 04/20/2024 08:06 PM EDDewey
== END 2024-04-06 12:47 | disposition home or self-care (01) ==
LOC: HO.MAMMO 12:46
PROVIDERS: Visit Provider Advanced Practice Midwife
DX: Z12.31 Encounter for screening mammogram for malignant neoplasm of breast (principal)
CPT/HCPCS: 77063; 77067

== ENCOUNTER → 2024-04-06 13:00 | Outpatient (BNV) | payer OTHER, SELFPAY | PROVIDERS: Visit Provider Internal Medicine | DX: Z12.31 Encounter for screening mammogram for malignant neoplasm of breast (principal) | CPT/HCPCS: 77063; 77067 ==

== ENCOUNTER 2024-07-05 10:57 | Outpatient (REF) | payer OTHER, SELFPAY ==
[2024-07-05 12:22] LABS: Syphilis Screen Nonreactive (Nonreactive)
[2024-07-05 12:23] LABS: HBc Num1 0.11 S/CO (0.00-0.79)
[2024-07-05 12:24] LABS: HIV AB/AG Nonreactive (Nonreactive); HIV Num 1 0.06 S/CO (0.00-0.99); Hepatitis B Core Antibody Nonreactive (Nonreactive); ~HepC Num1 0.26 S/CO (0.00-0.79); ~Hepatitis C Antibody Nonreactive (Nonreactive)
== END 2024-07-05 10:58 | disposition home or self-care (01) ==
LOC: HO.LAB 10:57
PROVIDERS: Visit Provider Advanced Practice Midwife
DX: Z20.2 Contact with and (suspected) exposure to infections with a predominantly sexual mode of transmission (principal); Z11.59 Encounter for screening for other viral diseases
CPT/HCPCS: 36415; 86704; 86780; 86803; 87389

== ENCOUNTER 2024-09-14 09:24 | Outpatient (AMB) | payer OTHER, SELFPAY ==
--- NOTE | 2024-09-14 09:48 | MHC.OFFVIS ---
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 Doing well with no mounted police officer concerns. Regular monthly menses. Hx. of infertility. History of fibroids. Currently is sexually active. She denies vaginal itching and irritation. STI screening offered; she declines. She tries to eat healthy, no exercise. Denies family history of breast, ovarian or colon cancer. Last pap smear 2021, negative. Mammogram: 2023. REPLACED BY [facility] Medical History (Updated 09/14/24 @ 10:24 by Camryn Garcia CNM) Enlarged uterus History of infertility No known health problems Social History Household Members: Spouse Housing: Apartment Alcohol intake: never Patient Tobacco Use Status: Never used Tobacco Sexual orientation: Straight/Heterosexual Gender identity: Female Female Reproductive History Menstrual Duration of menses: 6-7 days Date of last menstrual period: 09/07/24 Total pregnancies: 0 Date of last pap smear: 12/08/21 (negative pap smear, negative hpv) History of abnormal pap smear: No Date of Mammogram: 04/06/24 (bi rad 1) Review of Systems Const All systems reviewed & are unremarkable except as noted in HPI and below Reports as per HPI Eyes Reports no additional complaints ENT Reports no additional complaints Card Reports no additional complaints Resp Reports no additional complaints GI Reports as per HPI and Reports no additional complaints Reports as per HPI Musc Reports no additional complaints Skin/Breast Reports as per HPI Neuro Reports no additional complaints Psych Reports no additional complaints Endo Reports no additional complaints Jesus/Lymph Reports no additional complaints Aller/Immun Reports no additional complaints Physical Exam Vital Signs: Last Vital Signs BP 118/72 09/14/24 09:59 BMI result Body Mass Index 26.9 Const General: cooperative, healthy appearing, no acute distress, well developed and alert Orientation/consciousness: patient oriented x3 HEENT Head: Yes normal to inspection Eyes General: appearance normal, both eyes and all related structures Neck Neck: Yes normal visual inspection Thyroid: Thyroid normal Chest Chest palpation & inspection: normal inspection of the chest and other (no puckering, dimpling, peau de orange, retraction, discharge, masses) Breast/axilla inspection: normal inspection of the breasts Breast/axilla palpation: normal palpation of the breasts Resp Effort & Inspection: normal respiratory effort GI Inspection: Yes normal to inspection Palpation (GI): Soft to palpation Rectal Exam - Female: deferred General: Yes bladder normal to palpation External Female Exam: normal external appearance and normal appearance of the urethra Speculum Exam - Vagina: normal appearance of the vagina, normal palpation and normal vaginal discharge Speculum Exam - Cervix: normal appearance of the cervix and normal palpation Bimanual exam- vagina & uterus: normal bimanual exam, normal palpation, bladder normal to palpation, normal palpation, non-tender and enlarged Bimanual Exam- Adnexa, other: no masses Skin General skin exam: no rashes or lesions noted Rashes: no rashes Neuro General: patient oriented x3 Cognition (Neuro): normal cognition Extrem General: Yes normal to inspection Psych Attitude: cooperative Thought process: Normal thought process present Assessment & Plan Assessment & Plan (1) Encounter for well woman exam with routine gynecological exam: Code(s): Z01.419 - Encounter for gynecological examination (general) (routine) without abnormal findings Category: Medical Plan: Discussed: Current recommendations for pap smears per ASCCP guidelines. Breast awareness and periodic breast exams. Mammogram yearly. Maintain a healthy lifestyle including a well balanced diet and routine exercise. Patient verbalizes understanding and agrees to the plan of care. She was given opportunity to ask questions and all questions were answered to the best of my ability. RTO in one year for annual mounted police officer examination. This note is constructed using voice recognition software. While every effort has been made to ensure accuracy, log processor operator errors may have been included. (2) Enlarged uterus: Code(s): N85.2 - Hypertrophy of uterus Category: Medical Plan: Ultrasound plan to check the enlarged uterus, follow up in person to discuss test results, report any pain. UPT today-negative. Monitor menstrual cycles, report any unscheduled bleeding, bleeding episodes <24 days apart or heavy/prolonged menstrual bleeding. Call the office for a follow up for any concerns. Plan The patient expressed understanding and agreement with the plan of care. All of her questions and concerns were addressed to the best of my ability. Total time I personally spent on visit and management today: ?10 minutes. Time spent included review of pertinent office notes in the electronic health record; review of laboratory and imaging results; review of personal family medical history; discussing diagnosis and plan of care with the patient; documenting the encounter in the EMR. This note is constructed using voice recognition software. While every effort has been made to ensure accuracy, log processor operator errors may have been included. Orders: Orders MM tomosynthesis screening BI Today Z12.31 - Encounter for screening mammogram for malignant neoplasm of breast US pelvic and transvaginal Today N85.2 - Hypertrophy of uterus Coding Level of Care Code Est Pt Level 2 (67692) Est Pt Prev Care 40-64y(27545) Diagnoses Encounter for well woman exam with routine gynecological exam Z01.419 Enlarged uterus N85.2
[2024-09-14 09:59] VITALS: BP 118/72; BMI 26.9
== END 2024-09-14 10:38 | disposition home or self-care (01) ==
PROVIDERS: PCP Hospitalist; Visit Provider Advanced Practice Midwife
DX: Z01.411 Encounter for gynecological examination (general) (routine) with abnormal findings (principal); N85.2 Hypertrophy of uterus; Z32.02 Encounter for pregnancy test, result negative
CPT/HCPCS: 99212; 99396; 99459

== ENCOUNTER → 2024-09-14 09:24 | Outpatient (BNVA) | payer OTHER, SELFPAY | PROVIDERS: PCP Hospitalist; Visit Provider Advanced Practice Midwife | DX: Z01.419 Encounter for gynecological examination (general) (routine) without abnormal findings (principal); N85.2 Hypertrophy of uterus | CPT/HCPCS: 81025; 99212; 99396; 99459 ==

== ENCOUNTER 2024-10-03 11:28 | Outpatient (REF) | payer OTHER, SELFPAY ==
--- NOTE | ~2024-10-03 | US_ITS ---
EXAMINATION: US PELVIS TRANSABDOMINAL AND TRANSVAGINAL HISTORY: N85.2 - Hypertrophy of uterus COMPARISON: Comparison is made with the prior examination dated 03/11/2022. TECHNIQUE: Transabdominal and endovaginal real-time 2D tucker-scale ultrasound was performed. FINDINGS: Uterus: The uterus is normal in size, measuring 8.9 x 3.6 x 4.1 cm. Myometrium has a normal echotexture. Again seen is a dominant pedunculated fundal fibroid measuring 12.7 x 8.8 x 15.9 cm (previously 10.5 x 8.2 x 13.9 cm). Multiple additional fibroids are noted including a 1.8 x 1.4 x 1.7 cm anterior fibroid, a 1.6 x 2.0 x 1.8 cm anterior fibroid, a 1.5 x 1.3 x 1.5 cm right-sided fibroid, and a 2.3 x 2.2 x 1.8 cm right-sided fibroid. Endometrium: The endometrial stripe measures 9 mm in thickness. Right ovary: The right ovary is not identified. Left ovary: The left ovary measures 3.6 x 2.5 x 3.0 cm. The left ovary is normal in size and echotexture. Pelvic fluid: none. US/US pelvic and transvaginal IMPRESSION: Fibroid uterus as described. Electronically signed by: Jose Goldstein MD 10/03/2024 03:15 PM EDT
== END 2024-10-03 11:29 | disposition home or self-care (01) ==
LOC: HO.US 11:28
PROVIDERS: Visit Provider Advanced Practice Midwife
DX: N85.2 Hypertrophy of uterus (principal)
CPT/HCPCS: 76830; 76856

== ENCOUNTER → 2024-10-03 11:29 | Outpatient (BNV) | payer OTHER, SELFPAY | PROVIDERS: Visit Provider Radiology Diagnostic Radiology | DX: D25.9 Leiomyoma of uterus, unspecified (principal) | CPT/HCPCS: 76830; 76856 ==

== ENCOUNTER 2024-10-10 11:31 | Outpatient (AMB) | payer OTHER, SELFPAY ==
--- NOTE | 2024-10-10 11:35 | A.OFFVIS_ITS ---
Intake Visit Reasons: US follow up/Ok leslye Chung Cash Sales Audit Clerk Required: Yes Cash Sales Audit Clerk Language: Correspondence Coordinator Services: Cash Sales Audit Clerk Present Cash Sales Audit Clerk Name: Shira GIVENS Information Interpreted: non-clinical & clinical Dentist Private Practice: Dentist Private Practice Present Accompanied by: Spouse Allergies No Known Allergies [No Known Allergies*] Allergy (Unverified 03/09/23 10:59) Is last menstrual period known: Yes HPI Comments Details: Patient is here today for a follow up pelvic ultrasound accompanied by her , Henry. History of multiple and large fibroid. She reports an increase in pressure in pain now with her cycle. Menses are regular lasting 5-6 days, she does not report any heavy bleeding. [facility] Medical History (Updated 10/10/24 @ 12:10 by Camryn Garcia CNM) Enlarged uterus History of infertility No known health problems Social History Household Members: Spouse Housing: Apartment Alcohol intake: never Patient Tobacco Use Status: Never used Tobacco Sexual orientation: Straight/Heterosexual Gender identity: Female Review of Systems Const All systems reviewed & are unremarkable except as noted in HPI and below Endo Reports no additional complaints Physical Exam Const General: cooperative, healthy appearing and no acute distress Psych Appearance: well kempt Attitude: cooperative Thought process: Normal thought process present Results Reviewed Results Reviewed: [address] [address] Ultrasound Report Signed Patient: Geni Bourne MR#: [id number] : 1975 Acct:[id number] Age/Sex: 49 / F ADM Date: 10/03/24 Loc: HO.US Attending Dr: Camryn Garcia CNM Ordering Physician: Camryn Garcia CNM Date of Service: 10/03/24 Procedure(s): US pelvic and transvaginal Accession Number(s): [id number] cc: Camryn Garcia CNM~ EXAMINATION: US PELVIS TRANSABDOMINAL AND TRANSVAGINAL HISTORY: N85.2 - Hypertrophy of uterus COMPARISON: Comparison is made with the prior examination dated 03/11/2022. TECHNIQUE: Transabdominal and endovaginal real-time 2D tucker-scale ultrasound was performed. FINDINGS: Uterus: The uterus is normal in size, measuring 8.9 x 3.6 x 4.1 cm. Myometrium has a normal echotexture. Again seen is a dominant pedunculated fundal fibroid measuring 12.7 x 8.8 x 15.9 cm (previously 10.5 x 8.2 x 13.9 cm). Multiple additional fibroids are noted including a 1.8 x 1.4 x 1.7 cm anterior fibroid, a 1.6 x 2.0 x 1.8 cm anterior fibroid, a 1.5 x 1.3 x 1.5 cm right-sided fibroid, and a 2.3 x 2.2 x 1.8 cm right-sided fibroid. Endometrium: The endometrial stripe measures 9 mm in thickness. Right ovary: The right ovary is not identified. Left ovary: The left ovary measures 3.6 x 2.5 x 3.0 cm. The left ovary is normal in size and echotexture. Pelvic fluid: none. US/US pelvic and transvaginal IMPRESSION: Fibroid uterus as described. Electronically signed by: Jose Goldstein MD 10/03/2024 03:15 PM EDT RP Dictated By: Jose Goldstein MD Signed By: <Electronically signed by Jose Goldstein MD in OV> 10/03/24 1515 DD/ 1134 TD/TT: 10/03/24 1158 Horse Trainer: Assessment & Plan Assessment & Plan (1) Encounter to discuss test results: Code(s): Z71.2 - Person consulting for explanation of examination or test findings (2) Fibroid: Comment: 15.9cm, and other multiple fibroids Code(s): D21.9 - Benign neoplasm of connective and other soft tissue, unspecified Category: Medical Plan: Counseled re: Leiomyoma: common pelvic neoplasm. Differential diagnosis-may include but not limited to- leiomyosarcoma which is a rare uterine sarcoma 3- 7/100,000, difficult to distinguish from fibroids on ultrasound from uterine sarcoma's. Unlikely any single test will have a highly positive predictive value. Hysterectomy is not recommended for sole purpose of excluding malignant neoplasm. Consult for surgical exploration, medical treatment, other treatments, verses expectant management, pros and cons, risks and benefits. Patient prefers to proceed with consult for surgical management versus expectant management. Appointment to be made at [facility] for consult. Report any AUB, increasing pelvic pressure, bloating, or increasing pain. Referral to MD if indicated for level of care if indicated. The patient expressed understanding and agreement with the plan of care. All of her questions and concerns were addressed to the best of my ability. This note is constructed using voice recognition software. While every effort has been made to ensure accuracy, fittings finisher errors may have been included. Plan Discussed: Ultrasound findings large 15.9cm fibroid, multiple smaller fibroids. Orders: Referrals MAINTENANCE GROUNDMAN Referral D21.9 - Benign neoplasm of connective and other soft tissue, unspecified Coding Level of Care Code Est Pt Level 3 (55629) Diagnoses Encounter to discuss test results Z71.2 Fibroid D21.9
== END 2024-10-10 12:10 | disposition home or self-care (01) ==
LOC: HO.HWS 11:31
PROVIDERS: Visit Provider Advanced Practice Midwife
DX: Z71.2 Person consulting for explanation of examination or test findings (principal); D21.9 Benign neoplasm of connective and other soft tissue, unspecified
CPT/HCPCS: 99213

== ENCOUNTER → 2024-10-10 11:31 | Outpatient (BNVA) | payer OTHER, SELFPAY | PROVIDERS: Visit Provider Advanced Practice Midwife | DX: D21.9 Benign neoplasm of connective and other soft tissue, unspecified (principal); Z71.2 Person consulting for explanation of examination or test findings | CPT/HCPCS: 99212 ==

== ENCOUNTER 2025-01-10 13:02 | Emergency (ER) | payer OTHER, SELFPAY ==
[2025-01-10 13:10] VITALS: BP 129/43; PULSE 111; RESP 16; TEMP 36.4; O2SAT 99; BMI 29.4
--- NOTE | 2025-01-10 13:15 | ED.GENADULT ---
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 She states that has been red and itchy for about 2 weeks pain Today she noticed swelling to the area. She has been using calamine lotion and an [id number] poison hernando ointment with minimal improvement She reports that prior to the onset of her symptoms she was in a field ?helping a turtle across the road. Denies any fevers or chills pain Denies any new medications Related Data Previous Rx's ?Medication ?Instructions ?Recorded valacyclovir 1 gram tablet 1,000 mg PO TID #21 tabs 05/22/20 (Valtrex) ondansetron 4 mg disintegrating 4 mg PO Q8H PRN nausea and 11/16/21 tablet vomiting #10 tabs omeprazole 20 mg capsule,delayed 20 mg PO DAILY 30 days #30 caps 03/11/22 release albuterol sulfate 90 mcg/actuation 2 puff PO Q4-6H PRN for wheezing 04/22/22 aerosol inhaler (ProAir HFA) #8.5 ea prednisone 10 mg tablets in a dose 10 mg PO DIRECTED #48 ea 01/10/25 pack Allergies Allergy/AdvReac Type Severity Reaction Status Date / Time No Known Allergies (No Known Allergy Verified 01/10/25 13:13 Allergies*) Review of Systems Constitutional: Constitutional: Denies body ache(s), Denies chills and Denies fever(s) Cardiovascular: Cardiovascular: Denies chest pain and Denies dyspnea Respiratory: Respiratory: Denies cough and Denies dyspnea Musculoskeletal: Musculoskeletal: Denies arthralgias Integumentary/Breasts: Skin/Breast: Reports rash PMFSH Past Medical History Medical History (Updated 01/10/25 @ 14:46 by Jam Delong) Enlarged uterus History of infertility No known health problems Social History Social History Household Members: Spouse Housing: Apartment Alcohol intake: never Patient Tobacco Use Status: Never used Tobacco Advance Directives: No Advance Directives Information Provided: Yes Do you have a plan to hurt others: No Plan Sexual orientation: Straight/Heterosexual Gender identity: Female Physical Exam ED Vital Signs: Vital Signs - 24 hr 01/10/25 13:10 01/10/25 14:56 Temperature 97.5 F 97.5 F Pulse Rate 111 H 111 H Respiratory Rate 16 16 Blood Pressure 129/43 L 129/43 L Pulse Oximetry 99 99 Oxygen Delivery Method Room Air Room Air BMI result Body Mass Index 29.4 Const General: healthy appearing, comfortable, no acute distress, alert and awake Nutritional Appearance: well nourished Orientation/consciousness: patient oriented x3 HENMT Head: Yes normocephalic and Yes atraumatic Eyes Eyelids: Yes eyelids normal Conjunctivae: conjunctivae normal Sclerae: sclerae normal Corneas: corneas normal Pupils: Equal, round and reactive pupils present EOM: EOMs intact bilaterally Neck Neck: Yes full ROM Resp Effort & Inspection: normal respiratory effort, able to speak in complete sentences and not labored Skin Other: Scattered erythematous rash to the posterior lower legs with several vesicles on the right posterior lower leg. Some minor excoriation he, no deep wounds, no significant induration or fluctuance General skin exam: elasticity normal Neuro General: patient oriented x3 Cranial nerves: Yes Equal, round and reactive pupils present and Yes Bilaterally intact EOM present Cognition (Neuro): normal cognition Extrem Other: Moving all extremities well without any obvious deformities Course Course Course Narrative: RME, this is a rapid medical exam performed by Teofilo Delong please refer to primary provider for complete H&P- 49-year-old female presents for evaluation of a rash to both lower legs. She reports that it was initially red and itchy. The rash started about 2 weeks ago and now she is forming vesicles. She has been using calamine lotion and poison hernando treatment without any improvement. She does have some erythematous vesicles on bilateral lower extremities. Given that it is atypical to forearm vesicles 2 weeks after if this is contact dermatitis I ordered some basic labs with inflammatory markers. Medical Decision Making Medical Decision Making MDM Narrative: 49-year-old female presents for evaluation of an itchy, red rash over last 2 weeks to her lower legs. Her history is consistent with a contact dermatitis. However given the recent development of vesicles I ordered labs to evaluate for significant inflammatory disorder. The labs resulted without any concerning findings. This is likely a simple contact dermatitis in the new vesicles may be related to the patient's scratching. We will treat with a course of prednisone taper. Differential Diagnosis Differential Diagnoses: The differential diagnosis associated with the presentation includes Contact dermatitis Eczema Poison hernando Poison oak Cellulitis Lab Data 01/10/25 14:17 01/10/25 14:17 Labs: Lab Results 01/10/25 Range/Units 14:17 WBC 9.9 (4.8-10.8) X10*3/uL RBC 4.57 (4.20-5.50) X10*6/uL Hgb 11.2 L (12.0-16.0) g/dl Hct 34.9 L (37.0-47.0) % MCV 76.4 L (80.0-98.0) fL MCH 24.5 L (27.0-33.0) pg MCHC 32.1 (31.0-35.0) g/dl RDW 15.5 (11.0-16.0) % Plt Count 230 (160-400) X10*3/uL MPV 9.7 (9.4-12.3) fL Immature Gran % (Auto) 0.3 (0.0-0.4) % Neut % (Auto) 73.9 H (45-73) % Lymph % (Auto) 17.9 L (20-40) % [place] % (Auto) 5.6 (2-11) % Eos % (Auto) 2.1 (0-4) % Baso % (Auto) 0.2 (0-2) % Lymph # (Auto) 1.8 (1.2-4.9) X10*3/uL [place] # (Auto) 0.6 (0.1-1.2) X10*3/uL Eos # (Auto) 0.2 (0.0-0.4) X10*3/uL Baso # (Auto) 0.0 (0.0-0.2) X10*3/uL Abs Immat Gran (auto) 0.03 (0.00-0.03) X10*3/uL Absolute Neuts (auto) 7.3 (2.0-8.3) x10*3/uL Absolute Nucleated RBC 0.000 (0.0-0.012) X10*3/uL Nucleated RBC % (auto) 0.0 (0.0-0.2) /100WBC Sodium 140 (135-145) mmol/L Potassium 3.7 (3.3-5.1) mmol/L Chloride 107 (96-108) mmol/L Carbon Dioxide 27 (22-29) mmol/L Anion Gap 10 L (12-20) BUN 12 (9-16) mg/dL Creatinine 0.68 (0.5-1.4) mg/dL Estim Creat Clear Calc 94.6 Estimated GFR > 60 Random Glucose 81 (60-115) mg/dL Calcium 9.3 (8.4-10.2) mg/dL Total Bilirubin 0.2 (0.0-1.0) mg/dL AST 17 (5-31) U/L ALT 13 (0-31) U/L Alkaline Phosphatase 69 (39-117) U/L C-Reactive Protein 1.67 H (< or = 0.50) mg/dL Total Protein 7.4 (6.5-8.0) g/dL Albumin 4.4 (3.5-5.0) g/dL Lipase 21 (8-78) U/L Discharge Plan Discharge Clinical Impression: Contact dermatitis Patient Disposition: Home, Self-Care Instructions: Contact Dermatitis (ED) Additional Instructions: Your rash is consistent with a contact dermatitis such as poison hernando or poison oak. Take the prednisone taper as prescribed You may continue to use the calamine ointment Prescriptions: New prednisone 10 mg tablets,dose pack 10 mg PO DIRECTED Qty: 48 0RF Rx Instructions: see taper instructions No Action albuterol sulfate [ProAir HFA] 90 mcg/actuation HFA aerosol inhaler 2 puff PO Q4-6H PRN (Reason: for wheezing) Qty: 8.5 0RF valacyclovir [Valtrex] 1 gram tablet 1,000 mg PO TID Qty: 21 0RF ondansetron 4 mg tablet,disintegrating 4 mg PO Q8H PRN (Reason: nausea and vomiting) Qty: 10 0RF omeprazole 20 mg capsule,delayed release(DR/EC) 20 mg PO DAILY 30 Days Qty: 30 1RF Interventions: ED Discharge Assessment Last Done: 01/10/25 14:56 Discharge Date/Time: 01/10/25 14:52 Print Language: Luxembourger
[2025-01-10 14:22] LABS: MANUAL DIFF FLAG NO
[2025-01-10 14:27] LABS: Basophils Percent Auto 0.2 % (0-2); Eosinophils Absolute Auto 0.2 X10*3/uL (0.0-0.4); Eosinophils Percent Auto 2.1 % (0-4); Hematocrit 34.9 % (37.0-47.0); Hemoglobin 11.2 g/dl (12.0-16.0); Imm Gran Abs Auto 0.03 X10*3/uL (0.00-0.03); Imm Gran Pct Auto 0.3 % (0.0-0.4); Lymphocytes Absolute Auto 1.8 X10*3/uL (1.2-4.9); Lymphocytes Percent Auto 17.9 % (20-40); Mean Corpuscular HGB Conc 32.1 g/dl (31.0-35.0); Mean Corpuscular Hemoglobin 24.5 pg (27.0-33.0); Mean Corpuscular Volume 76.4 fL (80.0-98.0); Mean Platelet Volume 9.7 fL (9.4-12.3); Monocytes Absolute Auto 0.6 X10*3/uL (0.1-1.2); Monocytes Percent Auto 5.6 % (2-11); Neutrophils Absolute Auto 7.3 x10*3/uL (2.0-8.3); Neutrophils Percent Auto 73.9 % (45-73); Platelet Count 230 X10*3/uL (160-400); Red Blood Count 4.57 X10*6/uL (4.20-5.50); Red Cell Distribution Width 15.5 % (11.0-16.0); White Blood Count 9.9 X10*3/uL (4.8-10.8)
[2025-01-10 14:37] LABS: Alanine Aminotransferase 13 U/L (0-31); Albumin Level 4.4 g/dL (3.5-5.0); Alkaline Phosphatase 69 U/L (39-117); Anion Gap 10 (12-20); Aspartate Amino Transferase 17 U/L (5-31); Bilirubin Total 0.2 mg/dL (0.0-1.0); Blood Urea Nitrogen 12 mg/dL (9-16); C Reactive Protein 1.67 mg/dL (< or = 0.50); Calcium 9.3 mg/dL (8.4-10.2); Carbon Dioxide 27 mmol/L (22-29); Chloride 107 mmol/L (96-108); Creatinine Clr Calc Pharmacy 94.6; Estimated Glomerular Filt Rate > 60; Glucose Random 81 mg/dL (60-115); Lipase 21 U/L (8-78); Potassium 3.7 mmol/L (3.3-5.1); Sodium 140 mmol/L (135-145); Total Protein 7.4 g/dL (6.5-8.0)
[2025-01-10 14:56] VITALS: BP 129/43; PULSE 111; RESP 16; TEMP 36.4; O2SAT 99
[2025-01-10 15:07] LABS: Erythrocyte Sedimentation Rate 28 MM/HR (0-20)
== END 2025-01-10 14:52 | disposition home or self-care (01) ==
PROVIDERS: Physician Assistant; Emergency Provider Emergency Medicine; PCP Internal Medicine
DX: L25.9 Unspecified contact dermatitis, unspecified cause (principal); Z79.899 Other long term (current) drug therapy
CPT/HCPCS: 36415; 80053; 83690; 85025; 85652; 86140; 99282; 99283

== ENCOUNTER → 2025-01-18 10:13 | Outpatient (BNVA) | payer OTHER, SELFPAY | PROVIDERS: PCP Internal Medicine; Visit Provider Internal Medicine | DX: Z13.89 Encounter for screening for other disorder (principal) ==

== ENCOUNTER 2025-02-28 13:29 | Outpatient (AMB) | payer OTHER, SELFPAY ==
--- NOTE | 2025-02-28 13:33 | A.OFFPC_ITS ---
Vital Signs 02/28/25 13:35 Height 5 ft 2 in Weight 157 lb 2 oz BMI 28.7 BP 118/78 Blood Pressure Location Lt brachial Pulse 65 Pulse Source Pulse Oximeter Pulse Oximetry (%) 96 Oxygen Delivery Method Room Air Intake Visit Reasons: Establish care Wrist Hemmer Required: Yes Wrist Hemmer Language: Romanian Accompanied by: Self / Same As Patient Allergies No Known Allergies (No Known Allergies*) Allergy (Verified 02/28/25 14:12) Medication List - Last Reconciled 02/28/25 by Nevaeh Jewell PA-C albuterol sulfate 90 mcg/actuation (ProAir HFA) 2 puffs PO Q4-6H PRN omeprazole 20 mg PO DAILY 30 days ondansetron 4 mg PO Q8H PRN prednisone 10 mg PO DIRECTED prednisone 20 mg orally, Take 3 tablets for 3 days THEN; Take 2 tablets for 3 days THEN; Take 1 tablet for 3 days 9 days valacyclovir (Valtrex) 1,000 mg PO TID Tobacco use date assessed: 02/28/25 Dental Screening Dental Screen Date: 02/28/25 Did you have a dental visit in the last 12 months?: No Did you have a dental problem in the last 6 months where you did not have access to dental care?: No Was dental information given to patient?: No HPI Establish care HPI Details 49 year old female coming to the office for the first time. 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 Presenting with management of asthma, evaluation of uterine fibroid, and assessment of anemia. The patient uses albuterol as needed for asthma management. She typically use her albuterol inhaler 1-2 times per day and denies any nighttime awakenings. She was previously prescribed omeprazole for acid reflux, but is currently asymptomatic. She was diagnosed with a 15 cm uterine fibroid by her physical metallurgist and was sent to [facility] specialty surgeons. She is scheduled for procedure on the of this month. She was told preoperatively would need a sleep study which has not been completed. She does have a history of mild anemia since childhood and most recent blood work reflects this as well. mammogram: ordered by ob gyn physician assistant pap smear: UTD with ob gyn physician assistant [facility] Medical History Enlarged uterus History of infertility No known health problems Social History Household Members: Spouse Housing: Apartment Alcohol intake: never Patient Tobacco Use Status: Never used Tobacco e-Cigarette/Vaping Use: Never Used Sexual orientation: Straight/Heterosexual Gender identity: Female Female Reproductive History Menstrual Duration of menses: 6-7 days Total pregnancies: 0 History of abnormal pap smear: No Questionnaire PHQ-9 Over the last 2 weeks, how often have you been bothered by any of the following problems? 1. Little interest or pleasure in doing things: not at all 2. Feeling down, depressed, or hopeless: not at all 3. Trouble falling or staying asleep, or sleeping too much: not at all 4. Feeling tired or having little energy: not at all 5. Poor appetite or overeating: not at all 6. Feeling bad about yourself - or that you are a failure or have let yourself or your family down: not at all 7. Trouble concentrating on things, such as reading the newspaper or watching television: not at all 8. Moving or speaking so slowly that other people could have noticed. Or the opposite - being so fidgety or restless that you have been moving around a lot more than usual: not at all 9. Thoughts that you would be better off or of hurting yourself in some way: not at all Total score: 0 Depression Screening Interpretation: Negative Depression Screening Done: Yes 23567 - PHQ-9 Billing: Yes Source: Developed by Drs. Jose Khan, Meryl Nicolas, Curt Briseno and colleagues, with an educational bertha from [employer]. Thrive Questionnaire I am a: Patient What is your living situation today?: I choose not to answer this question Within the past 12 months, did the food you bought not last and you didn't have the money to get more?: I choose not to answer this question Within the past 12 months, did you worry whether your food would run out before you got money to buy more?: I choose not to answer this question Do you have trouble paying for medicines?: No Do you have trouble getting transportation to medical appointments?: No Do you have trouble paying your heating and electricity bill?: No Do you have trouble taking care of your child, family member or friend?: No Do you have trouble with day-to-day activities such as bathing, preparing meals, shopping, managing finances, etc.?: No Are you currently unemployed and looking for a job?: No Are you interested in more education?: No Please select the resources that you would like help with: None Currently or been in a relationship where the following occur: I choose not to answer THRIVE Score: 0 AUDIT C Alcohol Use Questionnaire (AUDIT-C) 1. How often do you have a drink containing alcohol?: Never Total Score: 0 STEF-7 AMB Questionnaire STEF-7 Date STEF - 7 assessed: 02/28/25 Feeling nervous, anxious, or on edge: 0 = Not at all Not being able to stop or control worryin = Not at all Worrying too much about different things: 0 = Not at all Trouble relaxin = Not at all Being so restless that it is hard to sit still: 0 = Not at all Becoming easily annoyed or irritable: 0 = Not at all Feeling afraid as if something awful might happen: 0 = Not at all Total STEF-7 score (0-4 normal; 5-9 mild; 10-14 moderate; 15-21 severe): 0 Source: Developed by Drs. Jose Khan, Meryl Nicolas, Curt Briseno and colleagues, with an educational bertha from [employer]. STEF-7 Assessment Billing STEF-7 Assessment Tool: STEF-7 Assessment 13858 Review of Systems Const Denies body aches, Denies chills, Denies fever(s), Denies headache(s) and Denies poor appetite Eyes Reports no additional complaints ENT Denies dizziness and Denies headache(s) Card Denies chest pain, Denies edema, Denies irregular heart rhythm, Denies lightheadedness and Denies dyspnea Resp Denies cough and Denies dyspnea GI Denies nausea and Denies vomiting Reports no additional complaints Musc Reports no additional complaints and Denies abnormal gait Skin/Breast Reports system reviewed and no additional complaints, except as documented Neuro Denies abnormal gait, Denies dizziness and Denies headache(s) Psych Reports no additional complaints Physical exam (Primary Care) Vital Signs: Last Vital Signs Pulse 65 02/28/25 13:35 BP 118/78 02/28/25 13:35 Pulse Ox 96 02/28/25 13:35 Oxygen Delivery Method Room Air 02/28/25 13:35 BMI result Body Mass Index 28.7 Tobacco/Smoking Status: Tobacco use Status Tobacco use date assessed 02/28/25 02/28/25 13:41 Patient Tobacco Use Status Never used Tobacco 02/28/25 13:41 e-Cigarette/Vaping Use Never Used 02/28/25 13:41 PHQ-9: PHQ-9 Score PHQ-9: Total score 0 02/28/25 14:23 Depression Screening Interpretation: Negative Currently or been in a relationship where the following occur: I choose not to answer Const General: cooperative, healthy appearing, comfortable and no acute distress Orientation/consciousness: patient oriented x3 HENMT Head: Yes normocephalic Ears: hearing grossly normal bilaterally General nose exam: Normal external nose present Eyes General: appearance normal, both eyes and all related structures Conjunctivae: conjunctivae normal Neck Neck: Yes full ROM and Yes no lymphadenopathy Resp Effort & Inspection: normal respiratory effort Auscultation: clear to auscultation bilaterally, no crackles, no rales, no rhonchi and no wheezes Cardio Rate: regular rate Rhythm: regular rhythm Skin General skin exam: no rashes or lesions noted Neuro General: patient oriented x3 Gait exam (Neuro): Normal gait present Extrem General: Yes normal to inspection, Yes full ROM and No edema Psych Affect: normal affect Attitude: cooperative Insight: Good insight present (Psych) Judgement: Good judgement present (Psych) Coding Level of Care Code New Pt Level 4 (18825) Diagnoses Moderate persistent asthma without complication J45.40 Asthma severity: moderate Asthma persistence: persistent Asthma complication type: uncomplicated Overweight (BMI 25.0-29.9) E66.3 Hypersomnolence G47.10 Anemia D64.9 Fibroid D21.9 Additional Codes STEF-7 Assessment Billing - STEF-7 Assessment Tool: STEF-7 Assessment 77396 ([id number]) PHQ-9 - 18182 - PHQ-9 Billing: Yes ([id number]) Assessment & Plan Assessment & Plan (1) Asthma: Code(s): J45.909 - Unspecified asthma, uncomplicated Category: Medical Qualifiers: Asthma severity: moderate Asthma persistence: persistent Asthma complication type: uncomplicated Qualified Code(s): J45.40 - Moderate persistent asthma, uncomplicated Plan: Asthma not well controlled on the albuterol as needed plan to add ICS to medica tion regimen at this time and reminded patient to rinse her mouth out after each use. Plan to follow up in 2 months to evaluate efficacy. Avoid triggers such as allergies. (2) Overweight (BMI 25.0-29.9): Code(s): E66.3 - Overweight Category: Medical Plan: Healthy diet and regular exercise is encouraged. (3) Hypersomnolence: Code(s): G47.10 - Hypersomnia, unspecified Category: Medical Plan: Patient having hypersomnolence as well as uncontrolled asthma. She was advised by her [facility] team to obtain a sleep study for further evaluation prior to her surgery. I did place an order for a home sleep study test. She is unsure if [facility] we will be ordering a sleep study as well. (4) Anemia: Code(s): D64.9 - Anemia, unspecified Category: Medical Plan: Most recent blood work revealing mild anemia plan to obtain iron profile for further evaluation. Patient does state she has a heavy menses which is likely the cause of her chronic anemia. Consider iron supplementation (5) Fibroid: Comment: 15.9cm, and other multiple fibroids Code(s): D21.9 - Benign neoplasm of connective and other soft tissue, unspecified Category: Medical Plan: Currently following with [facility] and due to undergo a procedure on the of this month. She is unsure of the procedure and what it entails we will plan to obtain these records. Plan The patient will continue using albuterol as needed for asthma management. A sleep study is recommended to evaluate respiratory function prior to the scheduled surgery for the uterine fibroid. Blood work will be conducted to assess cholesterol, thyroid function, and iron levels to further evaluate the anemia. The patient is advised to follow up in two months to assess the effectiveness of the new inhaler and review blood work results. Anxiety related to the upcoming surgery is acknowledged, and reassurance is provided regarding the surgical team at [facility]. This note was constructed using voice recognition software. While every effort has been made to ensure accuracy and human resources hr generalist, still areas may have been included sometimes these areas may affect the content or meeting of the given symptoms. Total time spent caring for the patient today was 30 minutes. This includes time spent before the visit reviewing the chart, time spent during the visit, and time spent after the visit and documentation. Patient was informed and verbally consented to the use of an ambient scribe for clinic note documentation during this visit. Orders: Orders IRON PROFILE Today D64.9 - Anemia, unspecified Free T4 (Free Thyroxine) Today Z13.29 - Encounter for screening for other suspected endocrine disorder TSH reflex Free T4 Today Z13.29 - Encounter for screening for other suspected endocrine disorder Vitamin D 25-OH Total Today Z13.21 - Encounter for screening for nutritional disorder Hemoglobin A1c Today Z13.1 - Encounter for screening for diabetes mellitus RT home sleep study Today G47.10 - Hypersomnia, unspecified Lipid Panel Today Z13.220 - Encounter for screening for lipoid disorders Vitamin B12 and Folate Today Z13.21 - Encounter for screening for nutritional disorder Medications: New mometasone 100 mcg/actuation (Asmanex HFA) 1 inh inhalation BID 13 grams 0RF Discontinued valacyclovir (Valtrex) Discontinued Reason: Patient no longer taking 1,000 mg PO TID 21 tabs 0RF ondansetron Discontinued Reason: Patient no longer taking 4 mg PO Q8H PRN 10 tabs 0RF nausea and vomiting prednisone see taper instructions Discontinued Reason: Patient no longer taking 10 mg PO DIRECTED 48 ea 0RF prednisone Discontinued Reason: Patient no longer taking 20 mg orally, Take 3 tablets for 3 days THEN; Take 2 tablets for 3 days THEN; Take 1 tablet for 3 days 9 days 18 tabs 0RF omeprazole Discontinued Reason: Patient no longer taking 20 mg PO DAILY 30 days 30 caps 1RF
[2025-02-28 13:35] VITALS: BP 118/78; PULSE 65; O2SAT 96; BMI 28.7
== END 2025-02-28 14:43 | disposition home or self-care (01) ==
LOC: HO.HMCH 13:30
DX: J45.40 Moderate persistent asthma, uncomplicated (principal); E66.3 Overweight; G47.10 Hypersomnia, unspecified; D64.9 Anemia, unspecified; D21.9 Benign neoplasm of connective and other soft tissue, unspecified

== ENCOUNTER → 2025-02-28 13:29 | Outpatient (BNVA) | payer OTHER, SELFPAY | PROVIDERS: PCP Internal Medicine | DX: J45.909 Unspecified asthma, uncomplicated (principal); D25.9 Leiomyoma of uterus, unspecified; D64.9 Anemia, unspecified; G47.10 Hypersomnia, unspecified; Z79.899 Other long term (current) drug therapy | CPT/HCPCS: 96127; 99202 ==

== ENCOUNTER 2025-03-12 08:57 | Outpatient (REF) | payer OTHER, SELFPAY ==
[2025-03-12 10:26] LABS: Hemoglobin A1C 101.2681 umol/L; Total Hemoglobin (HGBA1C) 2924.7993 umol/L
[2025-03-12 11:21] LABS: Cholesterol 168 mg/dL (<200); HDL Cholesterol 30 mg/dL (>40); Iron 93 mcg/dL (30-160); Percent Iron Saturation 33 % (15-50); Total Iron Binding Capacity 286 mcg/dL (228-428); Triglycerides 329 mg/dL (<150); Unsaturated Iron Binding 193 ug/dL
[2025-03-12 11:26] LABS: Free T4 (Free Thyroxine) 1.04 ng/dL (0.71-1.85)
[2025-03-12 11:30] LABS: Folate 11.2 ng/mL (> or = 4.0); Vitamin B12 336 pg/mL (200-900)
== END 2025-03-12 08:58 | disposition home or self-care (01) ==
LOC: HO.LAB 08:57
DX: Z13.1 Encounter for screening for diabetes mellitus (principal); Z13.29 Encounter for screening for other suspected endocrine disorder; Z13.21 Encounter for screening for nutritional disorder; Z13.220 Encounter for screening for lipoid disorders; D64.9 Anemia, unspecified
CPT/HCPCS: 36415; 80061; 82306; 82607; 82746; 83036; 83540; 84439; 84443

== ENCOUNTER → 2025-03-20 12:57 | Outpatient (REF) | payer OTHER, SELFPAY | LOC: HO.SL 12:57 | DX: G47.33 Obstructive sleep apnea (adult) (pediatric) (principal); G47.10 Hypersomnia, unspecified | CPT/HCPCS: 95806 ==

== ENCOUNTER → 2025-03-20 13:12 | Outpatient (BNV) | payer OTHER, SELFPAY | PROVIDERS: Visit Provider Internal Medicine | DX: G47.33 Obstructive sleep apnea (adult) (pediatric) (principal) | CPT/HCPCS: 95806 ==

== ENCOUNTER 2025-03-21 15:07 | Emergency (ER) | payer OTHER, SELFPAY ==
[2025-03-21 15:16] VITALS: BP 120/68; PULSE 120; RESP 18; TEMP 36.4; O2SAT 99; BMI 28.1
--- NOTE | 2025-03-21 15:20 | ED.GENADULT ---
HPI - General Adult General Chief complaint: Vaginal Bleeding Stated complaint: Abd Pain Post Surgery 03/15/25 Related Data Previous Rx's ?Medication ?Instructions ?Recorded albuterol sulfate 90 mcg/actuation 2 puff PO Q4-6H PRN for wheezing 04/22/22 aerosol inhaler (ProAir HFA) #8.5 ea mometasone 100 mcg/actuation HFA 1 inh inhalation BID #13 grams 02/28/25 aerosol inhaler (Asmanex HFA) cholecalciferol (vitamin D3) 25 25 mcg PO DAILY #90 caps 03/12/25 mcg (1,000 unit) capsule Allergies Allergy/AdvReac Type Severity Reaction Status Date / Time No Known Allergies (No Known Allergy Verified 03/21/25 15:23 Allergies*) FORMERLY [facility], 1928–1983 Past Medical History Medical History (Updated 03/22/25 @ 21:08 by GUSTAVO Lindsay) Screening for hypercholesterolemia Enlarged uterus History of infertility No known health problems Social History Social History Household Members: Spouse Housing: Apartment Alcohol intake: never Patient Tobacco Use Status: Never used Tobacco e-Cigarette/Vaping Use: Never Used Advance Directives: No Advance Directives Information Provided: Yes Do you have a plan to hurt others: No Plan Sexual orientation: Straight/Heterosexual Gender identity: Female Physical Exam ED Vital Signs: BMI result Body Mass Index 28.1 Course Course Course Narrative: This is an RME: Additional HPI, ROS, PE not included below will be deferred to primary provider. RME assessment and note performed by: Caitlin Hanley PA-C This is a [id number]-female who presents to the ER with complaints of abnormal uterine bleeding. Reports that she had a uterine study . I accessed [facility] Record and it appears that patient was seen at [facility] on March 15 due to bulky fibroid uterus, and had a endometrial sampling performed. Patient reports that for 2 weeks she was told that she could have some bleeding. She states that she has had increased suprapubic pain, and has been passing a lot of blood, states that she has used 10 pads since last night. She is tachycardic at 1:20. Plan: Labs, further ER evaluation needed. Reevaluation(s) Reevaluation #1: Patient left without completing treatment. Medical Decision Making Lab Data 03/21/25 15:51 03/21/25 15:51 Labs: Lab Results 03/21/25 Range/Units 15:51 WBC 6.6 (4.8-10.8) X10*3/uL RBC 4.28 (4.20-5.50) X10*6/uL Hgb 10.2 L (12.0-16.0) g/dl Hct 31.5 L (37.0-47.0) % MCV 73.6 L (80.0-98.0) fL MCH 23.8 L (27.0-33.0) pg MCHC 32.4 (31.0-35.0) g/dl RDW 15.6 (11.0-16.0) % Plt Count 169 D (160-400) X10*3/uL MPV 9.5 (9.4-12.3) fL Immature Gran % (Auto) 0.6 H (0.0-0.4) % Neut % (Auto) 59.7 (45-73) % Lymph % (Auto) 28.7 (20-40) % Rains % (Auto) 8.4 (2-11) % Eos % (Auto) 2.3 (0-4) % Baso % (Auto) 0.3 (0-2) % Lymph # (Auto) 1.9 (1.2-4.9) X10*3/uL Rains # (Auto) 0.6 (0.1-1.2) X10*3/uL Eos # (Auto) 0.2 (0.0-0.4) X10*3/uL Baso # (Auto) 0.0 (0.0-0.2) X10*3/uL Abs Immat Gran (auto) 0.04 H (0.00-0.03) X10*3/uL Absolute Neuts (auto) 3.9 (2.0-8.3) x10*3/uL Absolute Nucleated RBC 0.000 (0.0-0.012) X10*3/uL Nucleated RBC % (auto) 0.0 (0.0-0.2) /100WBC Sodium 137 (135-145) mmol/L Potassium 4.0 (3.3-5.1) mmol/L Chloride 106 (96-108) mmol/L Carbon Dioxide 23 (22-29) mmol/L Anion Gap 12 (12-20) BUN 15 (9-16) mg/dL Creatinine 0.92 (0.5-1.4) mg/dL Estim Creat Clear Calc 68.3 Estimated GFR > 60 Random Glucose 113 (60-115) mg/dL Calcium 8.9 (8.4-10.2) mg/dL Total Bilirubin 0.5 (0.0-1.0) mg/dL Direct Bilirubin 0.2 (0.0-0.5) mg/dL AST 40 H (5-31) U/L ALT 40 H (0-31) U/L Alkaline Phosphatase 104 (39-117) U/L Total Protein 7.2 (6.5-8.0) g/dL Albumin 4.1 (3.5-5.0) g/dL Lipase 29 (8-78) U/L Beta HCG, Quant < 2 mIU/mL Discharge Plan Discharge Clinical Impression: Abnormal uterine bleeding Patient Disposition: Left W/O Completing Treatment Prescriptions: No Action albuterol sulfate [ProAir HFA] 90 mcg/actuation HFA aerosol inhaler 2 puff PO Q4-6H PRN (Reason: for wheezing) Qty: 8.5 0RF cholecalciferol (vitamin D3) 25 mcg (1,000 unit) capsule 25 mcg PO DAILY Qty: 90 3RF Asmanex HFA 100 mcg/actuation HFA aerosol inhaler 1 inh inhalation BID Qty: 13 0RF Discharge Date/Time: 03/21/25 21:29
--- NOTE | 2025-03-21 15:30 | ECG_ITS ---
Test Reason : CP Blood Pressure : */* mmHG Vent. Rate : 124 BPM Atrial Rate : 124 BPM P-R Int : 126 ms QRS Dur : 76 ms QT Int : 300 ms P-R-T Axes : 20 -6 21 degrees QTcB Int : 431 ms Sinus tachycardia Minimal voltage criteria for LVH, may be normal variant ( R in aVL ) Borderline ECG No previous ECGs available Referred By: Caitlin Hanley Electronically Signed By: ASIYA MACEDO
[2025-03-21 15:54] LABS: MANUAL DIFF FLAG NO
[2025-03-21 15:59] LABS: Hematocrit 31.5 % (37.0-47.0); Hemoglobin 10.2 g/dl (12.0-16.0); Imm Gran Abs Auto 0.04 X10*3/uL (0.00-0.03); Imm Gran Pct Auto 0.6 % (0.0-0.4); Lymphocytes Absolute Auto 1.9 X10*3/uL (1.2-4.9); Mean Corpuscular HGB Conc 32.4 g/dl (31.0-35.0); Mean Corpuscular Hemoglobin 23.8 pg (27.0-33.0); Mean Corpuscular Volume 73.6 fL (80.0-98.0); NRBC Abs Auto 0.000 X10*3/uL (0.0-0.012); NRBC Pct Auto 0.0 /100WBC (0.0-0.2); Platelet Count 169 X10*3/uL (160-400); Red Blood Count 4.28 X10*6/uL (4.20-5.50); White Blood Count 6.6 X10*3/uL (4.8-10.8)
[2025-03-21 16:15] LABS: Alanine Aminotransferase 40 U/L (0-31); Albumin Level 4.1 g/dL (3.5-5.0); Alkaline Phosphatase 104 U/L (39-117); Anion Gap 12 (12-20); Aspartate Amino Transferase 40 U/L (5-31); Blood Urea Nitrogen 15 mg/dL (9-16); Calcium 8.9 mg/dL (8.4-10.2); Carbon Dioxide 23 mmol/L (22-29); Chloride 106 mmol/L (96-108); Creatinine Clr Calc Pharmacy 68.3; Estimated Glomerular Filt Rate > 60; Lipase 29 U/L (8-78); Potassium 4.0 mmol/L (3.3-5.1); Sodium 137 mmol/L (135-145); Total Protein 7.2 g/dL (6.5-8.0)
[2025-03-21 17:00] VITALS: BP 120/59; PULSE 113; RESP 18; TEMP 36.7; O2SAT 97
== END 2025-03-21 21:29 | disposition left against medical advice (07) ==
PROVIDERS: Physician Assistant Medical; Emergency Provider Emergency Medicine
DX: N93.9 Abnormal uterine and vaginal bleeding, unspecified (principal); Z53.29 Procedure and treatment not carried out because of patient's decision for other reasons; R07.9 Chest pain, unspecified; R00.0 Tachycardia, unspecified
CPT/HCPCS: 36415; 80048; 80076; 83690; 84702; 85025; 93005; 99283

== ENCOUNTER → 2025-03-21 15:30 | Outpatient (BNV) | payer OTHER, SELFPAY | PROVIDERS: Emergency Provider Emergency Medicine; Visit Provider Internal Medicine | DX: R00.0 Tachycardia, unspecified (principal) | CPT/HCPCS: 93010 ==

== ENCOUNTER 2025-04-13 07:51 | Outpatient (REF) | payer OTHER, SELFPAY | END 2025-04-13 07:52 | disposition home or self-care (01) | LOC: HO.MAMMO 07:51 | PROVIDERS: Visit Provider Advanced Practice Midwife | DX: Z12.31 Encounter for screening mammogram for malignant neoplasm of breast (principal) | CPT/HCPCS: 77063; 77067 ==

== ENCOUNTER → 2025-04-13 08:00 | Outpatient (BNV) | payer OTHER, SELFPAY | PROVIDERS: Visit Provider Internal Medicine | DX: Z12.31 Encounter for screening mammogram for malignant neoplasm of breast (principal) | CPT/HCPCS: 77063; 77067 ==

== ENCOUNTER 2025-05-22 09:25 | Outpatient (AMB) | payer OTHER, SELFPAY ==
[2025-05-22 09:31] VITALS: BP 122/78; PULSE 88; TEMP 36.2; O2SAT 98; BMI 28.9
--- NOTE | 2025-05-22 09:31 | A.OFFPC_ITS ---
Vital Signs 05/22/25 09:31 Height 5 ft 2 in Weight 158 lb BMI 28.9 BP 122/78 Blood Pressure Location Lt brachial Position Sitting Pulse 88 Pulse Source Pulse Oximeter Temp 97.1 F Temp Source Temporal Artery Scan Pulse Oximetry (%) 98 Oxygen Delivery Method Room Air Intake Visit Reasons: f/u asthma Biological Photographer Required: Yes Biological Photographer Language: Maltese Accompanied by: Self / Same As Patient Allergies No Known Allergies (No Known Allergies*) Allergy (Verified 05/22/25 09:36) Medication List - Last Reconciled 05/22/25 by Nevaeh Jewell PA-C albuterol sulfate 90 mcg/actuation (ProAir HFA) 2 puffs PO Q4-6H PRN cholecalciferol (vitamin D3) 25 mcg PO DAILY mometasone 100 mcg/actuation (Asmanex HFA) 1 inh inhalation BID Tobacco use date assessed: 05/22/25 Dental Screening Dental Screen Date: 05/22/25 Did you have a dental visit in the last 12 months?: No Did you have a dental problem in the last 6 months where you did not have access to dental care?: No Was dental information given to patient?: No HPI f/u asthma HPI Details 49-year-old female with past medical his tory of asthma, hypertriglyceridemia last seen 02/2025 coming in for follow up. In review of the notes, patient was seen in [facility] 02/2025 for abnormal uterine bleeding but left without completing treatment. She also completed sleep study which revealed mild obstructive sleep apnea recommending positional therapy and weight loss educational programming director Tony [id number] was used for the duration of this visit. Presenting for a follow-up on several health issues. She is scheduled for a [place] on May 29 [place] [facility] [place] potentially for fibroids however patient is unclear. Plan to obtain these notes. Recent sleep study was mildly positive for sleep apnea with episodes primarily occurring in the supine position. Recommend weight loss and positional therapy. She has not obtained the Asmanex decreased use of her albuterol inhaler 2 2-3 times per week maximum without nighttime awakenings. [facility] Medical History Screening for hypercholesterolemia Enlarged uterus History of infertility No known health problems Social History Household Members: Spouse Housing: Apartment Alcohol intake: never Patient Tobacco Use Status: Never used Tobacco Tobacco use type: Cigarette e-Cigarette/Vaping Use: Never Used Second Hand Smoke Exposure: No Sexual orientation: Straight/Heterosexual Gender identity: Female Questionnaire PHQ-9 Over the last 2 weeks, how often have you been bothered by any of the following problems? 1. Little interest or pleasure in doing things: not at all 2. Feeling down, depressed, or hopeless: not at all 3. Trouble falling or staying asleep, or sleeping too much: not at all 4. Feeling tired or having little energy: not at all 5. Poor appetite or overeating: not at all 6. Feeling bad about yourself - or that you are a failure or have let yourself or your family down: not at all 7. Trouble concentrating on things, such as reading the newspaper or watching television: not at all 8. Moving or speaking so slowly that other people could have noticed. Or the op posite - being so fidgety or restless that you have been moving around a lot more than usual: not at all 9. Thoughts that you would be better off or of hurting yourself in some way: not at all Total score: 0 Depression Screening Interpretation: Negative Depression Screening Done: Yes 81203 - PHQ-9 Billing: Yes Source: Developed by Drs. Jose Khan, Meryl Nicolas, Curt Briseno and colleagues, with an educational bertha from [employer]. Thrive Questionnaire Date Thrive assessed: 05/22/25 I am a: Patient What is your living situation today?: I choose not to answer this question Within the past 12 months, did the food you bought not last and you didn't have the money to get more?: I choose not to answer this question Within the past 12 months, did you worry whether your food would run out before you got money to buy more?: I choose not to answer this question Do you have trouble paying for medicines?: No Do you have trouble getting transportation to medical appointments?: No Do you have trouble paying your heating and electricity bill?: No Do you have trouble taking care of your child, family member or friend?: No Do you have trouble with day-to-day activities such as bathing, preparing meals, shopping, managing finances, etc.?: No Are you currently unemployed and looking for a job?: No Are you interested in more education?: No Please select the resources that you would like help with: None Currently or been in a relationship where the following occur: I choose not to answer THRIVE Score: 0 AUDIT C Alcohol Use Questionnaire (AUDIT-C) 1. How often do you have a drink containing alcohol?: Never Total Score: 0 STEF-7 AMB Questionnaire STEF-7 Date STEF - 7 assessed: 05/22/25 Feeling nervous, anxious, or on edge: 0 = Not at all Not being able to stop or control worryin = Not at all Worrying too much about different things: 0 = Not at all Trouble relaxin = Not at all Being so restless that it is hard to sit still: 0 = Not at all Becoming easily annoyed or irritable: 0 = Not at all Feeling afraid as if something awful might happen: 0 = Not at all Total STEF-7 score (0-4 normal; 5-9 mild; 10-14 moderate; 15-21 severe): 0 Source: Developed by Drs. Jose Khan, Meryl Nicolas, Curt Briseno and colleagues, with an educational bertha from [employer]. Review of Systems Const Denies body aches, Denies chills, Denies fever(s), Denies headache(s) and Denies poor appetite Eyes Reports no additional complaints ENT Denies dizziness and Denies headache(s) Card Denies chest pain, Denies edema, Denies lightheadedness and Denies dyspnea Resp Denies dyspnea GI Denies abdominal pain, Denies nausea and Denies vomiting Reports no additional complaints Musc Reports no additional complaints and Denies abnormal gait Skin/Breast Reports system reviewed and no additional complaints, except as documented Neuro Denies abnormal gait, Denies dizziness and Denies headache(s) Psych Reports no additional complaints Physical exam (Primary Care) Vital Signs: Last Vital Signs Temp 97.1 F 05/22/25 09:31 Pulse 88 05/22/25 09:31 BP 122/78 05/22/25 09:31 Pulse Ox 98 05/22/25 09:31 Oxygen Delivery Method Room Air 05/22/25 09:31 BMI result Body Mass Index 28.9 Tobacco/Smoking Status: Tobacco use Status Tobacco use date assessed 05/22/25 05/22/25 09:34 Patient Tobacco Use Status Never used Tobacco 05/22/25 09:34 Tobacco use type Cigarette 05/22/25 09:34 e-Cigarette/Vaping Use Never Used 05/22/25 09:34 PHQ-9: PHQ-9 Score PHQ-9: Total score 0 05/22/25 09:52 Depression Screening Interpretation: Negative Thrive Assessment: Date of Thrive Assessment Date Thrive assessed 05/22/25 05/22/25 09:34 Currently or been in a relationship where the following occur: I choose not to answer Const General: cooperative, healthy appearing, comfortable and no acute distress Orientation/consciousness: patient oriented x3 HENMT Head: Yes normocephalic Ears: hearing grossly normal bilaterally General nose exam: Normal external nose present Eyes General: appearance normal, both eyes and all related structures Conjunctivae: conjunctivae normal Neck Neck: Yes full ROM and Yes no lymphadenopathy Resp Effort & Inspection: normal respiratory effort Auscultation: clear to auscultation bilaterally, no crackles, no rales, no rhonchi and no wheezes Cardio Rate: regular rate Rhythm: regular rhythm Skin General skin exam: no rashes or lesions noted Neuro General: patient oriented x3 Gait exam (Neuro): Normal gait present Extrem General: Yes normal to inspection, Yes full ROM and No edema Psych Affect: normal affect Attitude: cooperative Insight: Good insight present (Psych) Judgement: Good judgement present (Psych) Coding Level of Care Code Est Pt Level 3 (01770) Diagnoses Moderate persistent asthma without complication J45.40 Asthma complication type: uncomplicated Asthma persistence: persistent Asthma severity: moderate Overweight (BMI 25.0-29.9) E66.3 Fibroid D21.9 Elevated LFTs R79.89 Obstructive sleep apnea G47.33 Hypertriglyceridemia E78.1 Elevated TSH R79.89 Additional Codes PHQ-9 - 62951 - PHQ-9 Billing: Yes ([id number]) Assessment & Plan Assessment & Plan (1) Asthma: Code(s): J45.909 - Unspecified asthma, uncomplicated Category: Medical Qualifiers: Asthma complication type: uncomplicated Asthma persistence: persistent Asthma severity: moderate Qualified Code(s): J45.40 - Moderate persistent asthma, uncomplicated Plan: Asthma currently controlled on present medications. Continue on current inhalers.? Avoid triggers such as allergies. Patient did not obtain the Asmanex inhaler and her current use of the albuterol has reduced. At this time she will continue on albuterol just as needed and agrees to reach out should this change. (2) Overweight (BMI 25.0-29.9): Code(s): E66.3 - Overweight Category: Medical Plan: Healthy diet and regular exercise is encouraged. (3) Fibroid: Comment: 15.9cm, and other multiple fibroids Code(s): D21.9 - Benign neoplasm of connective and other soft tissue, unspecified Category: Medical Plan: She is following [place] [facility] [place] and plans for [place] next month. Plan to obtain these notes (4) Elevated LFTs: Code(s): R79.89 - Other specified abnormal findings of blood chemistry Category: Medical Plan: Plan to repeat labs and add hepatitis panel. (5) Obstructive sleep apnea: Comment: 03/2025 Code(s): G47.33 - Obstructive sleep apnea (adult) (pediatric) Category: Medical Plan: Sleep study was mildly positive for obstructive sleep apnea recommending weight loss and positional therapy (6) Hypertriglyceridemia: Code(s): E78.1 - Pure hyperglyceridemia Category: Medical Plan: Avoid foods that are high in cholesterol such as red meat, fried foods, eggs and baked goods. Triglyceride goal of less than 150 and LDL goal of less than 130. Reminded about blood work. (7) Elevated TSH: Code(s): R79.89 - Other specified abnormal findings of blood chemistry Category: Medical Plan: plan to repeat blood work. Plan This note was constructed using voice recognition software. While every effort has been made to ensure accuracy and dental scheduler, still areas may have been included sometimes these areas may affect the content or meeting of the given symptoms. Total time spent caring for the patient today was 20 minutes. This includes time spent before the visit reviewing the chart, time spent during the visit, and time spent after the visit and documentation. Patient was informed and verbally consented to the use of an ambient scribe for clinic note documentation during this visit. Orders: Orders Hepatitis B,C Profile Today R79.89 - Other specified abnormal findings of blood chemistry Medications: Refilled albuterol sulfate 90 mcg/actuation (ProAir HFA) 2 puffs PO Q4-6H PRN 8.5 ea 0RF for wheezing Discontinued 2 mometasone 100 mcg/actuation (Asmanex HFA) Discontinued Reason: Patient no longer taking 1 inh inhalation BID 13 grams 0RF
== END 2025-05-22 10:13 | disposition home or self-care (01) ==
LOC: HO.HMCH 09:27
PROVIDERS: PCP Internal Medicine
DX: J45.40 Moderate persistent asthma, uncomplicated (principal); E66.3 Overweight; D21.9 Benign neoplasm of connective and other soft tissue, unspecified; R79.89 Other specified abnormal findings of blood chemistry; G47.33 Obstructive sleep apnea (adult) (pediatric); E78.1 Pure hyperglyceridemia

== ENCOUNTER → 2025-05-22 09:25 | Outpatient (BNVA) | payer OTHER, SELFPAY | PROVIDERS: PCP Internal Medicine | DX: J45.40 Moderate persistent asthma, uncomplicated (principal); E78.1 Pure hyperglyceridemia; E66.3 Overweight; D12.9 Benign neoplasm of anus and anal canal; R79.89 Other specified abnormal findings of blood chemistry; G47.33 Obstructive sleep apnea (adult) (pediatric); Z79.899 Other long term (current) drug therapy | CPT/HCPCS: 96127; 99212 ==

== ENCOUNTER 2025-05-23 09:38 | Outpatient (REF) | payer OTHER, SELFPAY ==
[2025-05-23 11:26] LABS: Alanine Aminotransferase 35 U/L (0-31); Albumin Level 4.5 g/dL (3.5-5.0); Alkaline Phosphatase 77 U/L (39-117); Aspartate Amino Transferase 41 U/L (5-31); Cholesterol 218 mg/dL (<200); HDL Cholesterol 47 mg/dL (>40); Total Protein 7.7 g/dL (6.5-8.0); Triglycerides 257 mg/dL (<150)
[2025-05-23 11:33] LABS: HBS Num1 0.15 mIU/mL (0-7.99); HBc Num1 0.07 S/CO (0.00-0.79); HBsAGNum1 0.39 S/CO (0.00-0.99); Hepatitis B Surface Antigen Negative (Negative); ~HepC Num1 0.22 S/CO (0.00-0.79); ~Hepatitis B Surface Antibody NONREACTIVE (Nonreactive); ~Hepatitis C Antibody Nonreactive (Nonreactive)
== END 2025-05-23 09:39 | disposition home or self-care (01) ==
LOC: HO.LAB 09:38
DX: Z11.59 Encounter for screening for other viral diseases (principal); Z13.29 Encounter for screening for other suspected endocrine disorder; E78.1 Pure hyperglyceridemia; R79.89 Other specified abnormal findings of blood chemistry
CPT/HCPCS: 36415; 80061; 80076; 84443; 86704; 86706; 86803; 87340